=== PATIENT | male | born 1950 | race Caucasian/White ===

== ENCOUNTER 2018-03-06 13:34 | Inpatient (IN) ==
[2018-03-06] MEDS ORDERED: TYLENOL PO PRN (13:37)
[2018-03-06] MEDS ORDERED: SALINE LOCK IV FLUID XX ONE (13:42)
[2018-03-06] MEDS ORDERED: VANCOMYCIN IV PER PHARMACY MISC SCH (13:45)
--- NOTE | 2018-03-06 15:01 | HISTORY AND PHYSICAL ---
CHIEF COMPLAINT: Scrotal swelling. HISTORY OF PRESENT ILLNESS: The patient is a 67-year-old, white male, followed in my medical practice. He has had about a week history of scrotal swelling, much worse over the past 24 hours. He has been unable to lie flat in the bed for just less than a year after he suffered a fall about a year ago. Since then, he has had thoracic and lumbar back pain and has to sleep in a recliner. He has had some chronic swelling in his legs with some cellulitis tendencies and venous insufficiency and has been treated by Dr. Alejandro De La Rosa with pump devices on his legs and also has been taking Lasix 40 mg q.a.m. for that, was increased to 80 mg recently. The patient has had worsened pain in the scrotal area since yesterday. MEDICATIONS: Prior to admission are Nexium 40 mg p.o. daily, Norvasc 2.5 mg p.o. daily, Zebeta 5 mg p.o. daily, Synthroid 112 mcg p.o. daily, allopurinol 300 mg p.o. daily, metformin 850 mg p.o. b.i.d., Lyrica [address] p.o. t.i.d. per Dr. Holder, who had been seeing him for rheumatology care until recently. Coumadin due to recurrent PTE. Lasix 80 mg p.o. q.a.m., trazodone 100 mg p.o. at bedtime, lisinopril 40 mg p.o. daily, B12 1000 mcg p.o. daily. ALLERGIES: NKDA. PAST MEDICAL HISTORY: 1. Chronic low back pain. 2. Morbid obesity. 3. 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 4. Type 2 DM diagnosed March 2010. 5. Chronic venous insufficiency lower extremities, longstanding. 6. Hypothyroidism. 7. Hypertension. 8. Gout. PAST SURGICAL HISTORY: 1. L5 disk removal in 1986. 2. Lumbar fusion in 1991. IMMUNIZATIONS: The patient has taken Zostavax in the past, Prevnar 13 given May 2015. Influenza vaccination given November 2017. FAMILY HISTORY: Notable for valve replacement in his mother, coronary artery disease in his mother. Hypertension in his mother, stomach cancer in his grandmother, [place] in his grandfather. No strokes or diabetes in the family. SOCIAL HISTORY: The patient lives in [place]. He is . He has 2 sons. He has been long- term disabled. Been a smoker about 3 to 4 cigarettes per day for about 50 years. No alcohol use. REVIEW OF SYSTEMS: Negative except as above. Echo done 2 years ago with normal EF of 60%. PHYSICAL EXAMINATION: VITAL SIGNS: Height 5 feet 10 inches. Weight greater than 300 pounds. Blood pressure 90/52, heart rate 73, O2 saturation on room air 94%. GENERAL: Morbidly obese, white male, in distress with scrotal pain. SKIN: There is moderate redness and pronounced scaliness from about 3[address] the knees into the upper feet area bilaterally with 2 to 3+ lower extremity edema. No weeping. No skin breakdown over the legs or feet. There is prominent macerations and redness to the scrotum with pronounced swelling about the scrotum and especially at the perineal aspect of the scrotum. There is a marked enlargement there, cannot rule out fluctuance. Again, the area is very red. Some maceration. Minimal bleeding noted. HEENT: LAITH, EOMI. Sclerae clear. Oropharynx, no redness. NECK: Very large. No JVD or bruits appreciated. CV: Regular rate and rhythm. No distinct murmur. LUNGS: Clear to auscultation. BACK: No pinpoint tenderness to palpation. ABDOMEN: Very protuberant. Active bowel sounds. Unable to appreciate ascites versus morbidly obese. : As above. EXTREMITIES: Two to 3+ lower extremity edema with chronic venous stasis changes and venous insufficiency lower extremities, prominent. NEUROLOGIC: Cranial nerves are intact. He moves all extremities well. No focal deficits. LABS: Reviewed recent lab testing done in the ER from the ER visit on 03/02/2018 and A1c done in the office 2 days ago 5.8. INR 2.3. ASSESSMENT: 1. Scrotal cellulitis, rule out necrotizing fasciitis. 2. Chronic venous insufficiency lower extremities with lower extremity cellulitis and venous stasis dermatitis. 3. Morbid obesity. 4. Type 2 diabetes mellitus. 5. Hypertension. 6. Hypothyroidism. 7. History of bilateral pulmonary thromboembolism on chronic Coumadin therapy and followed in the past by Dr. Soto. 8. Gout, stable on allopurinol. PLAN: Will admit the patient to the hospital. Check blood cultures x2. Lactase level, CBC with differential, CMP, A1c, PT, PTT. Will elevate the scrotum and start meropenem and vancomycin. I have spoken with Dr. Neumann of urology who will see the patient in consultation. cc: Duy Jamil MD
[2018-03-06 16:18] LABS: BASO# 0.05 X1000 (0.0-0.2); BASO% 0.3 % (0.0-0.8); EOS# 0.25 X1000 (0.0-0.7); EOS% 1.5 % (0.0-10.0); HEMATOCRIT 36.7 % (42.0-52.0); HEMOGLOBIN 11.8 g/dL (14.0-18.0); IMM GRAN# 0.12 X1000 (0.0-0.04); IMM GRAN% 0.7 % (0.0-0.5); LYMPH# 0.97 X1000 (1.2-3.4); LYMPH% 5.8 % (20.5-51.1); MCH 31.6 PG (27-31); MCHC 32.2 g/dL (33-37); MCV 98.4 FL (81-99); MONO# 1.22 X1000 (0.11-0.59); MONO% 7.2 % (1.7-9.3); MPV 9.5 FL (7.4-10.4); NEUT# 14.22 X1000 (1.4-6.5); NEUT% 84.5 % (42.2-75.2); PLT 247 X1000 (130-400); RBC 3.73 XMIL (4.7-6.1); RDW 14.1 % (11.5-14.5); WBC 16.83 X1000 (4.8-10.8)
[2018-03-06 16:29] LABS: INR 2.21; PROTIME 26.1 Seconds (11.0-16.0)
[2018-03-06 16:30] LABS: PTT 66.3 Seconds (22.3-41.8)
[2018-03-06 16:32] LABS: HEMOGLOBIN A1C 5.6 % (4.8-6.0)
[2018-03-06] MEDS: HUMULIN R SUBQ SCH ×2 (16:37→21:41)
[2018-03-06 16:39] LABS: ALB/GLOB RATIO 0.8; ALBUMIN 3.3 g/dL (3.5-5.0); CALCIUM 8.9 mg/dL (8.8-10.2); CREATININE 2.4 mg/dL (0.7-1.2); POTASSIUM 4.2 mmol/L (3.5-5.1); TOTAL BILIRUBIN 0.98 mg/dL (0.20-1.00); TOTAL PROTEIN 7.2 g/dL (6.3-8.3)
[2018-03-06] MEDS ORDERED: VANCOMYCIN 2.5 GM in NS 500 ML IV ONE (18:00)
[2018-03-06] MEDS: MERREM 1 GM in NS 50 ML IV SCH (18:33)
[2018-03-06] MEDS: DILAUDID IV PRN (20:47)
--- NOTE | 2018-03-07 01:31 | CONSULTATION ---
DATE OF CONSULTATION: 03/06/2018 ATTENDING PHYSICIAN: Duy Jamil MD. REFERRING PHYSICIAN: Duy Jamil MD. HISTORY OF PRESENT ILLNESS: This 67-year-old male has a week-long history of increasing swelling in the scrotum. He was seen in the emergency room on 02 March and was evaluated as having anasarca and swelling of the scrotum. The patient states he got worse and was seen by his family physician and was admitted with a probable scrotal abscess. The patient states he has had problems with swelling and has some difficulty with his foreskin. He states he is voiding without difficulty. PAST MEDICAL HISTORY: Diabetes, hypertension, hypothyroidism, gastroesophageal reflux disease, gout, recurrent DVT and pulmonary thromboembolism, trazodone for sleep, lower back pain, morbid obesity, chronic venous problems of his lower extremities. CURRENT MEDICATIONS: Documented on the chart. He was on Coumadin; his last dose was yesterday. PAST SURGICAL HISTORY: Multiple lower extremity procedures for venous ulcers, L5 disk removal, lumbar fusion. SOCIAL HISTORY: Cigarette use for over 50 years but now at 1/2 pack a day. ETOH use is negative. ALLERGIES: No known drug allergies. REVIEW OF SYSTEMS: He cannot walk very far; he gets short of breath. He tries to keep his diabetes under control. He has had no strokes or seizures. He has occasional bowel problems. PHYSICAL EXAMINATION: General: A markedly obese, age apparent, normally developed white male oriented in all ways and cooperative. HEENT: Normal for age. Lungs: Normal breath sounds but very distant. Cardiovascular: Regular rate and rhythm. Abdomen: Markedly obese, soft. No hepatosplenomegaly or masses, but even if there was, it would probably not be palpable. Genitourinary: Marked edema of the scrotum and foreskin. There is significant increased erythema, and it is very dusky at the scrotal-perineal junction and probably some fluctuance, but it is very tender with palpation. Testes are not palpable. He has a very large pannus. Extremities: +2 lower extremity edema with venous stasis changes. Neurologic: No focal deficits. LABORATORY EVALUATION: He has a white count of 16.8, a hemoglobin of 11.8, a hematocrit of 36.7, and platelets of 247,000. His serum electrolytes are normal. BUN 34, creatinine 2.4. Serum glucose is 143. IMPRESSION: 1. Scrotal abscess. 2. Phimosis. 3. Morbidly obese. 4. Marked scrotal and foreskin edema. PLAN: I attempted to place a Hogan catheter for fluid management for over 45 minutes without success. He has essentially a hidden penis, and the marked edema would not allow exposure of the glans penis and meatus. Incision and drainage of the scrotal abscess under anesthesia and will place a Hogan catheter at that time. May need a dorsal slit circumcision. The planned procedure, benefits versus risks, and possible complications, including, but not limited to, bleeding, infection, not being able to place a catheter, need for further wound care and surgery were discussed. Discussed that him being on Coumadin and being anticoagulated could cause increased bleeding, leading to a blood transfusion. They seemed to understand and desire to proceed. cc: MD Duy Valdez MD
[2018-03-07] MEDS: MERREM 1 GM in NS 50 ML IV SCH ×3 (01:53→17:24)
[2018-03-07] MEDS: DILAUDID IV PRN ×2 (01:53→09:56)
[2018-03-07 06:30] LABS: BASO# 0.03 X1000 (0.0-0.2); BASO% 0.2 % (0.0-0.8); HEMATOCRIT 34.7 % (42.0-52.0); HEMOGLOBIN 11.2 g/dL (14.0-18.0); IMM GRAN# 0.14 X1000 (0.0-0.04); IMM GRAN% 0.9 % (0.0-0.5); LYMPH# 1.08 X1000 (1.2-3.4); LYMPH% 7.2 % (20.5-51.1); MCH 31.8 PG (27-31); MCHC 32.3 g/dL (33-37); MCV 98.6 FL (81-99); MONO# 1.32 X1000 (0.11-0.59); MONO% 8.9 % (1.7-9.3); MPV 9.4 FL (7.4-10.4); NEUT# 12.04 X1000 (1.4-6.5); NEUT% 80.8 % (42.2-75.2); PLT 215 X1000 (130-400); RBC 3.52 XMIL (4.7-6.1); RDW 13.9 % (11.5-14.5); WBC 14.91 X1000 (4.8-10.8)
[2018-03-07 06:32] LABS: INR 2.33; PROTIME 27.3 Seconds (11.0-16.0)
[2018-03-07 06:51] LABS: CALCIUM 8.2 mg/dL (8.8-10.2); CREATININE 1.8 mg/dL (0.7-1.2); POTASSIUM 4.1 mmol/L (3.5-5.1)
[2018-03-07] MEDS: SYNTHROID PO SCH (07:04)
[2018-03-07] MEDS: NEXIUM PO SCH (07:04)
[2018-03-07] MEDS: HUMULIN R SUBQ SCH ×4 (07:04→21:42)
[2018-03-07] MEDS ORDERED: VITAMIN K 10 MG in NS 50 ML IV ONE (08:40)
--- NOTE | 2018-03-07 09:06 | PROGRESS NOTE ---
DATE: 03/07/2018 SUBJECTIVE: Patient resting fairly comfortably. He has had some onset of bleeding at the posterior scrotal area and some foul-smelling discharge. He is scheduled for I D of the scrotal abscess later today per Dr. Neumann. INR is 2.3. With the bleeding we are going to have to give him some vitamin K to make this more amenable to treatment with his upcoming surgery and with the ongoing bleeding. OBJECTIVE: T-max 99.4 degrees, pulse 78, respirations 18, blood pressure 118/53. O2 saturation on room air 93 to 98 percent.CV: RRR without distinct murmur. Lungs: CTA. Abdomen: Morbid obesity. Nontender. Moribund. Extremities: 2 to 3+ lower extremity edema with some scaliness to the lower legs and ankle areas circumferentially and also moderate redness in the area below the knees to the ankles. Prominent feet swelling as well. Neurologic: Patient arousable, alert, answers questions appropriately. Does seem slightly sedated on Dilaudid. Sodium 138, potassium 4.1, chloride 98, CO2 27, BUN 34, creatinine 1.8. A1c 5.6, blood sugars in the mid 100s. Lactate yesterday 1.9. White count down from 16.8, 14.9, hemoglobin 11.2, platelets 215,000. INR 2.33. ASSESSMENT: 1. Scrotal abscess with cellulitis. 2. Bleeding from the scrotal area. 3. Lower extremity cellulitis and edema. 4. Morbid obesity. 5. Anasarca. 6. Type 2 diabetes mellitus. 7. History of bilateral PEs, May 2008, severe on chronic Coumadin therapy. 8. Hypothyroidism. 9. Chronic venous insufficiency lower extremities. 10. Hypertension. 11. Gout. PLAN: At this time, we will give him vitamin K 10 mg IV x1 dose and Dr. Neumann plans on I and D of the scrotal abscess later today. Continue meropenem and vancomycin IV and monitor his labs closely. We will monitor his INR and will apply SCD hose. Check echocardiogram. Continue Lasix 80 mg daily and add low-dose Aldactone. Continue Nexium, Synthroid, and we are holding his BP medications at this time as he came in somewhat borderline low blood cultures x2 are in progress indication on Benson burgos trina was delivered in the. cc: Duy Jamil MD
[2018-03-07] MEDS: CETAPHIL MOISTURIZING LOT TOP SCH ×2 (10:39→20:30)
[2018-03-07] MEDS ORDERED: XYLOCAINE-MPF 2% ONE (10:46)
[2018-03-07] MEDS ORDERED: DIPRIVAN 1% ONE (10:46)
[2018-03-07] MEDS ORDERED: ROBINUL ONE (10:46)
[2018-03-07] MEDS ORDERED: NEOSPORIN OINTMENT PACKET ONE (12:14)
[2018-03-07 12:54] LABS: URINE SOURCE CATH
[2018-03-07 12:59] LABS: BILIRUBIN URINE NEGATIVE (NEGATIVE); BLOOD URINE TRACE (NEGATIVE); COLOR YELLOW; GLUCOSE URINE NEGATIVE (NEGATIVE); KETONE URINE TRACE mg/dL (NEGATIVE); LEUKOCYTES URINE NEGATIVE (NEGATIVE); NITRITE URINE NEGATIVE (NEGATIVE); PH URINE 5.5; PROTEIN URINE 30 mg/dL (NEGATIVE); SP GRAVITY URINE 1.017; TURBIDITY URINE HAZY (CLEAR); UROBILINOGEN URINE 4 mg/dL (NORMAL)
[2018-03-07 13:05] LABS: UR EPITHELIAL CELLS <10 /HPF (<10); URINE BACTERIA NEGATIVE /HPF; URINE RBC <10 /HPF (<10); URINE WBC <10 /HPF (<10)
[2018-03-07 13:16] LABS: URINE YEAST NONE SEEN
[2018-03-07] MEDS: LYRICA PO SCH ×3 (14:10→17:23)
[2018-03-07] MEDS: LASIX PO SCH (14:11)
[2018-03-07] MEDS: ZYLOPRIM PO SCH (14:11)
[2018-03-07] MEDS: DESYREL PO SCH (14:12)
[2018-03-07] MEDS: PATIENT'S OWN MED SL SCH (14:13)
--- NOTE | 2018-03-07 20:10 | OPERATIVE NOTE ---
PROCEDURE DATE: 03/07/2018 SURGEON: Mike Neumann MD. POSTOP DIAGNOSIS: Scrotal abscess with marked penile and scrotal edema. POSTOPERATIVE DIAGNOSIS: Perineal and scrotal abscess with marked penile and scrotal edema. PROCEDURE PERFORMED: Incision and drainage of the large perineal and scrotal abscess and difficult Hogan catheterization. FINDINGS: There was marked penile and scrotal edema. There was a fluctuant area that started on the right side of the anal verge and went across the perineum up onto the scrotum to about fpc up the left scrotum. After this was opened up a large amount of pus was removed. Aerobic and anaerobic cultures were obtained. The patient had an essentially hidden penis and the glans penis and meatus could not be visualized. INDICATION FOR PROCEDURE: This 67-year-old male is morbidly obese and developed scrotal area and left hip area pain. He was seen by his family physician and was admitted with a scrotal abscess. Attempts were made to place a Hogan catheter on the floor without success. DESCRIPTION OF PROCEDURE: After informed consent was obtained from the patient and him receiving IV antibiotics, he was taken to the main OR, placed in the supine position. General anesthesia via laryngeal mask was achieved. He was then placed in candy canes in the lithotomy position. The table was placed in Trendelenburg. He was prepped and draped sterilely for lower abdominal, penile, and perineal surgery. A scalpel blade was used to make an incision through the left side of the scrotum down the perineum to the right side of the anal area. A large amount of purulent material drained out. Cultures both aerobic and anaerobic were obtained. After the purulence was removed, normal saline was used to irrigate the area. The wound was packed with 1 inch iodoform gauze, an entire bottle was used. This was reinforced with ABD pads. The ABD pad was held. The foreskin was squeezed trying to push edema fluid out of it without success. DeBakeys were used to pull the inner prepuce out enough to where the glans penis could be seen. A 16-Swazi Hogan catheter was then able to be passed through the meatus, urethra, prostate and into the bladder. Cloudy urine returned but 10 mL of sterile water were placed in the balloon. The Hogan was placed to gravity drain. After this difficult Hogan catheterization was performed, the ABD pads were taped to his inner thighs and mesh briefs were placed. He tolerated the procedure well. Estimated blood loss was 25 mL. He was taken to the recovery room in good condition. cc: MD Duy Valdez MD
[2018-03-08] MEDS: MERREM 1 GM in NS 50 ML IV SCH ×3 (01:40→17:45)
[2018-03-08] MEDS: PERIDEX MT SCH ×3 (02:16→21:22)
[2018-03-08] MEDS: DILAUDID IV PRN ×4 (05:01→21:18)
[2018-03-08] MEDS ORDERED: VANCOMYCIN 2 GM in NS 500 ML IV SCH (06:00)
[2018-03-08] MEDS: NEXIUM PO SCH (06:27)
[2018-03-08] MEDS: SYNTHROID PO SCH (06:27)
[2018-03-08] MEDS: HUMULIN R SUBQ SCH ×4 (06:44→21:26)
[2018-03-08 06:46] LABS: BASO# 0.02 X1000 (0.0-0.2); BASO% 0.2 % (0.0-0.8); EOS% 2.6 % (0.0-10.0); HEMATOCRIT 33.2 % (42.0-52.0); HEMOGLOBIN 10.6 g/dL (14.0-18.0); IMM GRAN# 0.24 X1000 (0.0-0.04); IMM GRAN% 2.1 % (0.0-0.5); LYMPH# 1.02 X1000 (1.2-3.4); LYMPH% 8.7 % (20.5-51.1); MCH 31.5 PG (27-31); MCHC 31.9 g/dL (33-37); MCV 98.5 FL (81-99); MONO# 0.84 X1000 (0.11-0.59); MONO% 7.2 % (1.7-9.3); MPV 9.1 FL (7.4-10.4); NEUT# 9.26 X1000 (1.4-6.5); NEUT% 79.2 % (42.2-75.2); PLT 203 X1000 (130-400); RBC 3.37 XMIL (4.7-6.1); RDW 13.7 % (11.5-14.5); WBC 11.68 X1000 (4.8-10.8)
[2018-03-08 07:08] LABS: CALCIUM 8.2 mg/dL (8.8-10.2); CREATININE 1.4 mg/dL (0.7-1.2)
[2018-03-08 07:11] LABS: INR 1.3; PROTIME 17.2 Seconds (11.0-16.0)
[2018-03-08] MEDS ORDERED: DAKIN'S 0.25% SOLN TOP ONE (09:22)
[2018-03-08] MEDS: ZYLOPRIM PO SCH (10:59)
[2018-03-08] MEDS: PATIENT'S OWN MED SL SCH (11:00)
[2018-03-08] MEDS: LASIX PO SCH (11:00)
[2018-03-08] MEDS: DESYREL PO SCH (11:00)
[2018-03-08] MEDS: CETAPHIL MOISTURIZING LOT TOP SCH (11:01)
[2018-03-08] MEDS: LYRICA PO SCH ×3 (11:01→18:49)
--- NOTE | 2018-03-08 14:45 | PROGRESS NOTE ---
DATE: 03/08/2018 SUBJECTIVE: Mr. Asencio, a 67-year-old white gentleman, has normal signs. OBJECTIVE: Abscess cultures have been negative. Blood sugar was 105. He has a history of pulmonary embolism. His INR was 1.3 today. He had some episodes of bleeding from the scrotal abscess. He is recovering from the surgery for the scrotal abscess and marked penile and scrotal edema. He is on IV meropenem and IV vancomycin. We will continue the current management on him. -9 cc: MD Duy Causey MD
--- NOTE | 2018-03-08 19:45 | ECHO REPORT ---
ORDER DATE: 03/07/2018 INDICATION: Edema, obesity, diabetes, hypertension. FINDINGS: 1. Right atrium appears mildly enlarged at 4.6 cm. 2. Mild tricuspid regurgitation. RV systolic pressure of 44. 3. Normal RV systolic function with a likely enlarged right ventricle. 4. Mild pulmonic insufficiency. 5. Normal left atrial size with a very difficult visualization of the left atrium. 6. No mitral prolapse. Mild mitral regurgitation. 7. Normal LV size, end-diastolic dimension of 5 cm. Normal wall thicknesses with a posterior and interventricular septal thickness of 1 cm each. Normal LV systolic function. Estimated EF of 65 to 70 percent with normal wall motion. 8. Aortic valve opens well. There is no evidence of stenosis or insufficiency. 9. Aorta appears somewhat enlarged at the root with a dimension of 4 cm but this was a somewhat difficult study. 10. No pericardial effusion seen. cc: MD Duy Willis MD
[2018-03-08] MEDS: ZOFRAN IV PRN (21:22)
[2018-03-09] MEDS: SYNTHROID PO SCH ×2 (05:15→08:38)
[2018-03-09] MEDS: MERREM 1 GM in NS 50 ML IV SCH ×3 (05:16→17:17)
[2018-03-09] MEDS: DILAUDID IV PRN ×5 (05:55→23:07)
[2018-03-09] MEDS: ZOFRAN IV PRN ×2 (05:56→23:08)
[2018-03-09] MEDS: NEXIUM PO SCH (08:38)
[2018-03-09] MEDS: HUMULIN R SUBQ SCH ×3 (08:38→17:17)
[2018-03-09] MEDS: CETAPHIL MOISTURIZING LOT TOP SCH ×2 (09:40→10:34)
[2018-03-09] MEDS: LYRICA PO SCH ×3 (10:30→17:17)
[2018-03-09] MEDS: ZYLOPRIM PO SCH (10:33)
[2018-03-09] MEDS: LASIX PO SCH (10:33)
[2018-03-09] MEDS: PERIDEX MT SCH ×2 (10:33→23:05)
[2018-03-09] MEDS: DESYREL PO SCH (10:33)
[2018-03-09] MEDS: PATIENT'S OWN MED SL SCH (10:34)
[2018-03-09] MEDS ORDERED: LOVENOX SUBQ ONE (11:22)
[2018-03-09] MEDS: VANCOMYCIN 2 GM in NS 500 ML IV SCH (13:37)
[2018-03-10] MEDS: MERREM 1 GM in NS 50 ML IV SCH ×3 (02:12→16:55)
--- NOTE | 2018-03-10 04:00 | PROGRESS NOTE ---
DATE: 03/09/2018 SUBJECTIVE: Mr. Tong is recovering from surgery for scrotal abscess. He is going to have another look tomorrow at around 11 o'clock. However, we will give him one injection of Lovenox 4000 units today. Overall condition is stable. We will continue with the current management. OBJECTIVE: General: He is alert and oriented today. Vital signs: Are stable. Blood pressure is stable. Lungs: Clear. Cardiac: Heart sounds are normal. DIAGNOSTIC DATA: He had an echocardiogram done yesterday which revealed mild right atrial enlargement and mild tricuspid regurgitation. His EF was 65 to 70 percent. There was no evidence of pericardial effusion. -0 cc: MD Duy Causey MD
[2018-03-10] MEDS: DILAUDID IV PRN ×4 (05:19→18:57)
[2018-03-10] MEDS: CETAPHIL MOISTURIZING LOT TOP SCH ×2 (05:23→13:09)
[2018-03-10] MEDS: HUMULIN R SUBQ SCH ×5 (06:38→23:20)
[2018-03-10] MEDS: NEXIUM PO SCH (08:15)
[2018-03-10] MEDS: SYNTHROID PO SCH (08:15)
[2018-03-10] MEDS: LYRICA PO SCH ×3 (09:29→16:54)
--- NOTE | 2018-03-10 09:36 | PROGRESS NOTE ---
DATE: 03/10/2018 SUBJECTIVE: The patient complains of some pain in his low back area that has been chronic. He had been seeing Dr. Holder, airline lounge receptionist, before but Dr. Holder is no longer practicing. We had discussed earlier maybe seeing Dr. Lovell, pain specialist, regarding his back and we may arrange that outpatient later on. At any rate, the patient seems to have less swelling in his scrotum and the leg swelling has diminished as well. OBJECTIVE: Vital Signs: Afebrile, pulse 67, respirations 16, blood pressure 150/61, O2 saturation on room air of 96 to 98 percent. CV: RRR without distinct murmur. Lungs: Clear. Abdomen: Morbid obesity. Very protuberant, soft, nontender, nondistended. Integumentary: Perineal area is somewhat bandaged. Extremities: Lower extremity edema has decreased. He has 1+ lower extremity edema bilaterally. There is mild redness and less scaliness with the lotion being applied to the feet and legs. He has chronic toenail onychomycosis with thickened nails that are long. Neurologic: Cranial nerves are intact. He moves all extremities well. He has a tremor in his hand but that seems very inconsistent on exam. His inquires about that. Laboratory Data: White count 2 days ago was 11. Blood sugars ranging in the low 100s. Blood cultures x2 and culture of the wounds are negative. ASSESSMENT: 1. Scrotal abscess with perineal and scrotal cellulitis, improved, status post incision and drainage per Dr. Neumann. 2. Lower extremity cellulitis and edema, improved. 3. Morbid obesity. 4. Anasarca. 5. Type 2 diabetes mellitus. 6. History of bilateral pulmonary thromboembolisms in May 2008, severe, and therefore on chronic Coumadin therapy, now currently on Lovenox for prophylaxis. 7. Hypothyroidism. 8. Chronic venous insufficiency of the lower extremities. 9. Hypertension. 10. Gout. 11. Chronic low back pain. PLAN: I encouraged the patient in weight loss. We reviewed the echocardiogram done Saturday, which was good. He remains on meropenem and vancomycin, and lotion has been applied to his lower extremities which seems to be helping the dry skin. He is on low-dose Aldactone and on the Lasix orally as well as Nexium and Synthroid. BP medications are being held but we may need to resume those soon. The patient is going down per Dr. Neumann again to have an evaluation of the scrotal area to see if there are more areas that need debrided or I and D'ed. We will likely resume his Coumadin late this evening. We will reevaluate and see if he has had further actual debridement done to make sure he does not bleed from that prior to starting the Coumadin back. cc: Duy Jamil MD
[2018-03-10] MEDS ORDERED: XYLOCAINE-MPF 2% ONE (10:39)
[2018-03-10] MEDS ORDERED: DIPRIVAN 1% ONE (10:39)
[2018-03-10] MEDS ORDERED: ULTRAM PO ONE (12:40)
[2018-03-10] MEDS: LASIX PO SCH (13:10)
[2018-03-10] MEDS: ZYLOPRIM PO SCH (13:10)
[2018-03-10] MEDS: PATIENT'S OWN MED SL SCH (13:11)
[2018-03-10] MEDS: DESYREL PO SCH (13:11)
[2018-03-10] MEDS: PERIDEX MT SCH (13:11)
--- NOTE | 2018-03-10 13:23 | OPERATIVE NOTE ---
PROCEDURE DATE: 03/10/2018 SURGEON: Mike Neumann MD. PREOPERATIVE DIAGNOSIS: Status post incision, drainage, and debridement of a perianal perineal and scrotal abscess. POSTOPERATIVE DIAGNOSIS: Status post incision, drainage, and debridement of a perianal perineal and scrotal abscess. PROCEDURE PERFORMED: Second look and debridement of necrotic skin edges of the wound. ANESTHESIA: General via laryngeal mask. FINDINGS: The wound bed is granulating well with some exudative material. This was easily removed. The skin edges mainly on the perineal and distal scrotal wound were necrotic and easily removed. INDICATION FOR PROCEDURE: This 67-year-old male has a history of a perianal, perineal and scrotal abscess. He is 3 days status post incision, drainage and debridement of the wound. He has been undergoing 1/4 strength Dakin's solution wet-to-dry dressing changes twice a day. DESCRIPTION OF PROCEDURE: After informed consent was obtained from the patient, him receiving his routine IV antibiotics, he was taken to the main OR, placed in supine position. General anesthesia via laryngeal mask was achieved. He was then placed in the exaggerated lithotomy position and prepped and draped in the usual sterile fashion for penile scrotal and perineal surgery. The old packing was removed. The wound was scrubbed out with Vashe solution. The necrotic wound edges were excised using Metzenbaum scissors. The tissue was discarded hemostasis was achieve with the electrocautery. The wound was redressed with soaked Vashe solution, dry dressings as well as ABDs were placed. He tolerated this procedure well. ESTIMATED BLOOD LOSS: Was 25 mL. He was taken to the recovery room in good condition. cc: MD Duy Valdez MD
[2018-03-10] MEDS: VANCOMYCIN 2 GM in NS 500 ML IV SCH (18:57)
[2018-03-11] MEDS: MERREM 1 GM in NS 50 ML IV SCH ×3 (01:30→16:44)
[2018-03-11] MEDS: PERIDEX MT SCH ×3 (02:28→21:18)
[2018-03-11] MEDS: SYNTHROID PO SCH ×2 (05:34→06:28)
[2018-03-11] MEDS: NEXIUM PO SCH ×2 (05:34→06:28)
[2018-03-11] MEDS: CETAPHIL MOISTURIZING LOT TOP SCH ×3 (05:37→21:19)
[2018-03-11] MEDS: HUMULIN R SUBQ SCH ×4 (06:27→21:18)
--- NOTE | 2018-03-11 08:28 | PROGRESS NOTE ---
DATE: 03/11/2018 SUBJECTIVE: The patient had debridement of necrotic tissue and exudative material at the wound site of the perineum and scrotal area yesterday. There was some bloody oozing. This was not severe and patient tolerated the procedure well and I spoke with Dr. Neumann and he says the wound is overall improving. The patient is stable otherwise. He has had some cough. OBJECTIVE: Vitals: Afebrile, pulse 77, respirations 20, blood pressure 148/76. O2 saturation room air 91 to 93 percent. CARDIOVASCULAR: Regular rhythm and rate. Lungs: Computed tomography angiography, distant breath sounds. Abdomen: Very protuberant. Morbid obesity. Active bowel sounds. Extremities: Trace lower extremity edema with much improvement overall in the edema in his feet and lower legs. There is some redness circumferentially around the lower legs consistent with venous stasis dermatitis, but the scaliness is improved with the Cetaphil lotion. Neurologic: Cranial nerves are intact. No focal deficits. Cultures of the wound remain negative, as do blood cultures. ASSESSMENT: 1. Scrotal abscess perineum and scrotal area, status post incision and drainage and debridement x2. 2. Cellulitis lower extremities with edema, improved. 3. Morbid obesity. 4. Venous stasis dermatitis with chronic venous insufficiency lower extremities. 5. Type 2 diabetes mellitus. 6. History of remote bilateral pulmonary thromboembolisms, on chronic Coumadin therapy. 7. Hypothyroidism. 8. Hypertension. 9. Gout. 10. Chronic low back pain. PLAN: We will ask Physical Therapy to see the patient and start to work with him on ambulation. Continue low-dose Aldactone and Lasix and will resume his Coumadin and give him subcutaneous Lovenox prophylactically for DVT. We will start incentive spirometer and albuterol nebulizer treatments. Continue SSI and frequent Accu-Cheks, holding his metformin currently. We will get home health care arranged and instructions are being given per Dr. Neumann to the patient's regarding packing of the wound. Continue IV antibiotics and hopefully discharge late in the week if he continues on present course. cc: Duy Jamil MD
[2018-03-11] MEDS: LASIX PO SCH (09:32)
[2018-03-11] MEDS: DESYREL PO SCH (09:32)
[2018-03-11] MEDS: ZEBETA PO SCH (09:32)
[2018-03-11] MEDS: LYRICA PO SCH ×3 (09:33→16:44)
[2018-03-11] MEDS: PATIENT'S OWN MED SL SCH (09:33)
[2018-03-11] MEDS: COZAAR PO SCH (09:33)
[2018-03-11] MEDS: ZYLOPRIM PO SCH (09:33)
[2018-03-11] MEDS: DILAUDID IV PRN ×2 (09:35→13:37)
[2018-03-11] MEDS: ALBUTEROL NEB INH SCH ×3 (15:46→21:23)
[2018-03-11] MEDS: COUMADIN PO SCH (21:18)
[2018-03-12] MEDS: MERREM 1 GM in NS 50 ML IV SCH ×3 (00:11→16:43)
[2018-03-12] MEDS: VANCOMYCIN 2 GM in NS 500 ML IV SCH (01:16)
[2018-03-12] MEDS: ALBUTEROL NEB INH SCH ×4 (02:30→21:25)
[2018-03-12] MEDS: SYNTHROID PO SCH (06:12)
[2018-03-12] MEDS: HUMULIN R SUBQ SCH ×4 (06:12→21:53)
[2018-03-12] MEDS: NEXIUM PO SCH (06:12)
[2018-03-12 06:55] LABS: BASO# 0.04 X1000 (0.0-0.2); BASO% 0.5 % (0.0-0.8); EOS# 0.44 X1000 (0.0-0.7); EOS% 5.6 % (0.0-10.0); HEMATOCRIT 36.8 % (42.0-52.0); HEMOGLOBIN 11.8 g/dL (14.0-18.0); IMM GRAN# 0.45 X1000 (0.0-0.04); IMM GRAN% 5.7 % (0.0-0.5); LYMPH# 1.41 X1000 (1.2-3.4); LYMPH% 17.9 % (20.5-51.1); MCH 31.7 PG (27-31); MCHC 32.1 g/dL (33-37); MCV 98.9 FL (81-99); MONO# 0.64 X1000 (0.11-0.59); MONO% 8.1 % (1.7-9.3); NEUT# 4.89 X1000 (1.4-6.5); NEUT% 62.2 % (42.2-75.2); PLT 217 X1000 (130-400); RBC 3.72 XMIL (4.7-6.1); RDW 13.8 % (11.5-14.5); WBC 7.87 X1000 (4.8-10.8)
[2018-03-12 07:09] LABS: CALCIUM 8.6 mg/dL (8.8-10.2); CREATININE 1.2 mg/dL (0.7-1.2)
[2018-03-12 07:21] LABS: INR 1.11; PROTIME 15.2 Seconds (11.0-16.0)
[2018-03-12] MEDS: DILAUDID IV PRN ×2 (08:01→13:51)
[2018-03-12 08:24] LABS: EOS 10 % (1-10); LYMPHS 22 % (21-51); MONO 16 % (1-9); SEGS 48 % (42-75)
[2018-03-12] MEDS: ZEBETA PO SCH (09:02)
[2018-03-12] MEDS: LOVENOX SUBQ SCH (09:03)
[2018-03-12] MEDS: PERIDEX MT SCH ×2 (09:03→21:53)
[2018-03-12] MEDS: COZAAR PO SCH (09:03)
[2018-03-12] MEDS: LYRICA PO SCH ×3 (09:03→16:42)
[2018-03-12] MEDS: ZYLOPRIM PO SCH (09:03)
[2018-03-12] MEDS: LASIX PO SCH (09:03)
[2018-03-12] MEDS: DESYREL PO SCH (09:03)
[2018-03-12] MEDS: CETAPHIL MOISTURIZING LOT TOP SCH ×2 (09:04→21:54)
[2018-03-12] MEDS: PATIENT'S OWN MED SL SCH (09:28)
[2018-03-12] MEDS ORDERED: MILK OF MAGNESIA PO PRN (12:59)
--- NOTE | 2018-03-12 13:35 | PROGRESS NOTE ---
DATE: 03/12/2018 SUBJECTIVE: Patient complains of spasm in his back that flares up quite a bit. He says it is making it difficult for him to lie in bed. He was able to ambulate quite a few feet with physical therapy earlier today and do some toe touching exercises. The patient had the I and D again yesterday of the scrotum and perineal area. He has not had a bowel movement in several days, and he is concerned about that. says his legs looked black earlier and that has resolved now. He does have chronic venous insufficiency and some red discoloration to the legs, lower aspect long-standing. OBJECTIVE: Vital Signs: Afebrile. Blood pressure looks better in the 120 systolic currently, but that is concerning the patient. CV: RRR without murmur. Lungs: CTA. Morbid obesity and prominent abdominal girth noted. Active bowel sounds. No particular point tenderness. Extremities: Trace lower extremity edema. Overall edema is markedly improved since he came in. There are some varicose veins prominent over the lower legs. There is some diffuse redness which is moderate in intensity. There is no black discoloration. No necrosis identified. Feet have come down in size as well with less edema there. Does have some dystrophic nails that are prominent. Neurologic: Cranial nerves are intact. Nonfocal. LAB DATA: Shows white count down to normal at 7.8, hemoglobin 11.8, platelets 217. INR 1.11. Sodium 138, potassium 4.0, chloride 92, CO2 34. BUN 22, creatinine 1.2. Blood sugars in the low 100s. Calcium 8.6. Blood cultures and wound culture remain negative. ASSESSMENT: 1. Scrotal and perineal abscess improved after incision and drainage of the area times two. 2. Cellulitis lower extremities with chronic venous insufficiency and chronic stasis dermatitis, lower extremities, improved by my exam markedly. 3. Morbid obesity. 4. Chronic back pain. 5. Type 2 diabetes mellitus. 6. Remote history of bilateral pulmonary thromboembolism on chronic Coumadin therapy prior to this hospitalization. 7. Hypothyroidism. 8. Hypertension. 9. Gout. PLAN: We will arrange for the patient to have a hospital bed so he can avoid lying in his recliner which seems to increase the scrotal edema situation. We will continue to work with physical therapy regarding ambulation and activity level. We will add Robaxin for spasms of the low back. As he has the constipation, we will give him some daily MiraLAX and add milk of magnesia as required, but will not overdo it as we are trying to keep the perineum as clean as we can. Continue incentive spirometry, albuterol nebulizer treatments. We had started him back on some of his antihypertensives yesterday, but opted for low-dose Zebeta. So far creatinine looks good on that. We have not yet started him back on his metformin, but that will be a consideration the next couple of days, and likely tomorrow we will be able to change him over to oral antibiotics from the IV antibiotics. Home healthcare is going to be arranged to help with dressings of the perineum and scrotum at home. His has been educated in that process. He has been started back on his Coumadin last evening; will continue that and resume his home dose of the Coumadin soon. In the meantime, we will give him Lovenox at prophylactic doses so as not to increase any bleeding at the surgical site. cc: Duy Jamil MD
[2018-03-12] MEDS: MIRALAX PO SCH (14:01)
[2018-03-12] MEDS: COUMADIN PO SCH (21:53)
[2018-03-13] MEDS: MERREM 1 GM in NS 50 ML IV SCH ×2 (01:35→08:45)
[2018-03-13] MEDS: ALBUTEROL NEB INH SCH ×4 (03:25→21:12)
[2018-03-13] MEDS: VANCOMYCIN 2 GM in NS 500 ML IV SCH (05:06)
[2018-03-13] MEDS: SYNTHROID PO SCH (06:19)
[2018-03-13] MEDS: HUMULIN R SUBQ SCH ×2 (06:19→11:56)
[2018-03-13] MEDS: NEXIUM PO SCH (06:19)
[2018-03-13] MEDS: ROBAXIN PO PRN (08:11)
[2018-03-13] MEDS: LYRICA PO SCH ×3 (08:11→20:49)
[2018-03-13] MEDS: COZAAR PO SCH (08:11)
[2018-03-13] MEDS: PERIDEX MT SCH ×2 (08:11→20:51)
[2018-03-13] MEDS: ZYLOPRIM PO SCH (08:11)
[2018-03-13] MEDS: ZEBETA PO SCH (08:11)
[2018-03-13] MEDS: MIRALAX PO SCH (08:11)
[2018-03-13] MEDS: LASIX PO SCH (08:11)
[2018-03-13] MEDS: DESYREL PO SCH (08:11)
[2018-03-13] MEDS: CETAPHIL MOISTURIZING LOT TOP SCH ×2 (08:12→20:50)
[2018-03-13] MEDS: PATIENT'S OWN MED SL SCH (08:12)
[2018-03-13] MEDS: LOVENOX SUBQ SCH (08:13)
[2018-03-13] MEDS ORDERED: DULCOLAX PR ONE (12:23)
--- NOTE | 2018-03-13 13:00 | PROGRESS NOTE ---
DATE: 03/13/2018 SUBJECTIVE: Patient is stable. Insurance is not going to cover his hospital bed. Due to a fall, he has had some chronic back pain times many months and it makes hard for him to sleep flat in the bed, so he has been sleeping in a recliner, which really exacerbates his scrotal edema and sets him up for further abscess and cellulitis difficulties. At any rate, the hospital bed is not going to be covered by the insurance and the family cannot afford to rent a hospital bed at this point. We are going to try to get him a bedside commode which should help. He still has not had a bowel movement. We have not been overly aggressive with the laxatives at this point. OBJECTIVE: Vital signs: Afebrile. Pulse 62, respirations 12, blood pressure 121/66, O2 saturation on 2 L is 100%. CV: RRR without murmur. Lungs: Clear. Abdomen: Very protuberant. Active bowel sounds noted. Extremities: Trace ankle edema. Mild redness over the shins, much improved from admission. There are some varicosities of the lower extremities and some discoloration to the feet and mclean areas, which is chronic. Neurologic: Cranial nerves 2 through 12 are intact. Nonfocal. ASSESSMENT: 1. Scrotal and perineal abscess and cellulitis scrotal area, status post incision and drainage x2. 2. Cellulitis lower extremities with chronic venous insufficiency and chronic venous dermatitis lower extremities, improved markedly since admission. 3. Morbid obesity. 4. Chronic back pain. 5. Type 2 diabetes mellitus. 6. Remote history of bilateral pulmonary thromboembolism, on chronic Coumadin therapy, going back now on the Coumadin. 7. Hypothyroidism. 8. Hypertension. 9. Gout. 10. Renal insufficiency, improved. PLAN: As stated, will get him a bedside commode. We will go ahead and give him a Dulcolax suppository here in the hospital and try to get his bowels moving prior to probable discharge tomorrow. Change him over from the meropenem and vancomycin to oral Keflex and doxycycline. We will resume his metformin and monitor his renal function closely on that. Continue Robaxin for some back spasms and Dilaudid as needed for pain. He is on low-dose Zebeta and losartan for blood pressure. We will continue those. cc: Duy Jamil MD
[2018-03-13] MEDS: KEFLEX PO SCH ×2 (14:38→20:49)
[2018-03-13] MEDS: DILAUDID IV PRN (14:41)
[2018-03-13] MEDS ORDERED: GLUCOPHAGE PO SCH (17:00)
[2018-03-13] MEDS: DOXYCYCLINE PO SCH (20:49)
[2018-03-13] MEDS: COUMADIN PO SCH (20:50)
[2018-03-14] MEDS: KEFLEX PO SCH ×4 (03:24→20:29)
[2018-03-14] MEDS: ALBUTEROL NEB INH SCH ×4 (03:46→21:20)
[2018-03-14 07:13] LABS: INR 1.16; PROTIME 15.8 Seconds (11.0-16.0)
[2018-03-14 07:24] LABS: CALCIUM 9.6 mg/dL (8.8-10.2); POTASSIUM 3.8 mmol/L (3.5-5.1)
[2018-03-14] MEDS: SYNTHROID PO SCH (07:34)
[2018-03-14 07:36] LABS: BASO# 0.05 X1000 (0.0-0.2); BASO% 0.5 % (0.0-0.8); EOS# 0.53 X1000 (0.0-0.7); EOS% 5.5 % (0.0-10.0); HEMOGLOBIN 11.4 g/dL (14.0-18.0); IMM GRAN% 4.1 % (0.0-0.5); LYMPH# 1.15 X1000 (1.2-3.4); LYMPH% 11.8 % (20.5-51.1); MCH 31.6 PG (27-31); MCHC 31.7 g/dL (33-37); MCV 99.7 FL (81-99); MONO# 0.77 X1000 (0.11-0.59); MONO% 7.9 % (1.7-9.3); MPV 9.4 FL (7.4-10.4); NEUT# 6.81 X1000 (1.4-6.5); NEUT% 70.2 % (42.2-75.2); PLT 208 X1000 (130-400); RBC 3.61 XMIL (4.7-6.1); RDW 14.2 % (11.5-14.5); WBC 9.71 X1000 (4.8-10.8)
[2018-03-14 07:41] LABS: EOS 8 % (1-10); LYMPHS 2 % (21-51); MONO 20 % (1-9); SEGS 70 % (42-75)
--- NOTE | 2018-03-14 08:02 | PROGRESS NOTE ---
DATE: 03/14/2018 SUBJECTIVE: Patient is stable, no complaints today. Had bowel movement x2 yesterday. Dr. Neumann is going back to close the wound in the perineum, scrotal area this morning. OBJECTIVE: Vital signs: Afebrile. Vital signs stable. CV: RRR. No murmur. Lungs: Clear. Abdomen: Soft, protuberant, active bowel sounds, nontender. Extremities: Trace lower extremity edema. Varicose veins. Mild redness over the shins and the forefoot areas with some sparing of the ankles. Overall marked improvement in redness and swelling in the lower extremities since admission. Neurologic: Nonfocal cranial nerves are intact. LABORATORY DATA: Shows CBC currently pending. INR 1.16. Sodium 140, potassium 3.8, chloride 95, CO2 of 33, BUN 32, creatinine 2.0, glucose 109. Blood sugars in the mid-to-low 100s. Calcium 9.6. ASSESSMENT: 1. Scrotal and perineal abscess and cellulitis status post I and D x2, now going back for surgery today for closure of the wound. 2. Cellulitis, lower extremities, with chronic venous insufficiency and chronic venous stasis dermatitis, lower extremities, improved. 3. Morbid obesity. 4. Chronic back pain. 5. Type 2 diabetes mellitus. 6. Remote bilateral pulmonary thromboembolism, on chronic Coumadin therapy, getting back up to therapeutic gradually now. 7. Hypothyroidism. 8. Hypertension. 9. Gout. 10. Chronic renal insufficiency. 11. Gastroesophageal reflux disease. PLAN: At this time, I am going to adjust his medicines as he is having some renal insufficiency worsening. We will stop the low-dosed losartan and stop his home metformin and we will change him to low-dose Amaryl, get him off of the Nexium and give him Pepcid. PLAN: Likely discharge home later today after the wound closure surgery per Dr. Neumann. He will have Hogan catheter in place at home, and home health care will monitor the patient with wound care there as well. He will be on oral Keflex and doxycycline for a total of 10 more days, and I will follow him up in the office in 4 days for a PT/INR check, and he will resume his home dose of Coumadin at 7 mg nightly. He will be only the Zebeta. We will try to leave off the dose home dose of Norvasc he was on to see if that will help his lower extremity edema, and he will elevate his legs as much as possible. Bedside commode has been arranged, but patient unable to get the hospital bed at this time due to finances. Will repeat BMP at recheck in 4 to 10 days in my office. He will follow up with Dr. Neumann within the next week as well. cc: Duy Jamil MD
[2018-03-14] MEDS: DILAUDID IV PRN ×2 (09:10→18:52)
[2018-03-14] MEDS: CETAPHIL MOISTURIZING LOT TOP SCH ×2 (09:27→20:33)
[2018-03-14] MEDS: LASIX PO SCH (09:28)
[2018-03-14] MEDS: DESYREL PO SCH (09:28)
[2018-03-14] MEDS: DOXYCYCLINE PO SCH ×2 (09:28→20:29)
[2018-03-14] MEDS: LYRICA PO SCH ×3 (09:29→18:36)
[2018-03-14] MEDS: PATIENT'S OWN MED SL SCH (09:29)
[2018-03-14] MEDS: MIRALAX PO SCH (09:29)
[2018-03-14] MEDS: PERIDEX MT SCH ×2 (09:29→20:29)
[2018-03-14] MEDS: LOVENOX SUBQ SCH (09:29)
[2018-03-14] MEDS: ZYLOPRIM PO SCH (09:30)
[2018-03-14] MEDS: ZEBETA PO SCH (09:30)
[2018-03-14] MEDS ORDERED: DIPRIVAN 1% ONE (14:25)
[2018-03-14] MEDS ORDERED: EPHEDRINE ONE (15:47)
[2018-03-14] MEDS ORDERED: ZOFRAN ONE (15:47)
[2018-03-14] MEDS ORDERED: ROBINUL ONE (15:47)
--- NOTE | 2018-03-14 19:34 | OPERATIVE NOTE ---
PROCEDURE DATE: 03/14/2018 SURGEON: Mike Neumann MD. PREOPERATIVE DIAGNOSIS: History of large scrotal, perineal and right perineal abscess status post incision, drainage and debridement with the wound granulating well. POSTOPERATIVE DIAGNOSIS: History of large scrotal, perineal and right perineal abscess status post incision, drainage and debridement with the wound granulating well. PROCEDURE PERFORMED: Secondary closure of the wound. ANESTHESIA: General via laryngeal mask. FINDINGS: Well-granulating large scrotal, perineal and right perianal wound. INDICATION FOR PROCEDURE: This 67-year-old male is about 1 week status post incision, drainage and debridement of a large abscess involving the scrotum, perineum and right perianal area. He is status post 2nd look 4 days ago and repeat debridement. He has been undergoing wet-to-dry dressing changes with Vashe solution for the last 4 days. The wound is ready to be closed. DESCRIPTION OF PROCEDURE: After informed consent was obtained from the patient, him receiving his routine antibiotics, he was taken to the main OR, placed in the supine position. General anesthesia via laryngeal mask was achieved. He was then placed in the exaggerated lithotomy position and the wound was prepped with Betadine solution. He was then draped sterilely and the Betadine thoroughly washed out of the wound. The wound was closed with 1-0 Prolene. Vertical mattress sutures were placed 2 cm apart and then these were reinforced with simple sutures in between. A total of 7 horizontal mattress sutures were placed and 7 simple sutures. He tolerated the procedure well. Estimated blood loss was 5 mL. He was taken to the recovery room in good condition. cc: MD Duy Valdez MD
[2018-03-14] MEDS: COUMADIN PO SCH (20:29)
[2018-03-14] MEDS: ROBAXIN PO PRN (20:29)
[2018-03-15] MEDS: DILAUDID IV PRN ×3 (00:10→10:13)
[2018-03-15] MEDS: KEFLEX PO SCH ×2 (01:34→07:30)
[2018-03-15] MEDS: ALBUTEROL NEB INH SCH ×2 (03:20→08:56)
[2018-03-15] MEDS: SYNTHROID PO SCH (06:23)
[2018-03-15] MEDS ORDERED: ROBAXIN PO PRN (07:15)
[2018-03-15] MEDS: ZYLOPRIM PO SCH ×2 (07:30→09:09)
[2018-03-15] MEDS: MIRALAX PO SCH ×2 (07:30→09:10)
[2018-03-15] MEDS: PERIDEX MT SCH ×2 (07:30→09:09)
[2018-03-15] MEDS: ZEBETA PO SCH ×2 (07:31→09:09)
[2018-03-15] MEDS: LYRICA PO SCH ×2 (07:31→09:10)
[2018-03-15] MEDS: LASIX PO SCH ×2 (07:31→09:10)
[2018-03-15] MEDS: LOVENOX SUBQ SCH ×2 (07:32→09:10)
[2018-03-15] MEDS: CETAPHIL MOISTURIZING LOT TOP SCH (08:53)
[2018-03-15] MEDS: PATIENT'S OWN MED SL SCH (09:09)
[2018-03-15] MEDS: DOXYCYCLINE PO SCH (09:10)
[2018-03-15] MEDS: DESYREL PO SCH (09:10)
[2018-03-15 11:09] VITALS: BP 97/50
--- NOTE | 2018-03-15 11:12 | PROGRESS NOTE ---
DATE: 03/15/2018 SUBJECTIVE: Patient complained of spasms in his back and pain in the perineal area where he had closure of the wound per Dr. Neumann yesterday. He is on Dilaudid for that and has some Robaxin ordered as well p.r.n. for the back spasms. OBJECTIVE: Vital Signs: Afebrile. Pulse 67, respirations 18, blood pressure 130/62, O2 saturation on room air 91% to 93%. CV: RRR. Lungs: Clear to auscultation. Abdomen: Very protuberant. Morbid obesity. Active bowel sounds. Nontender. Extremities: Trace lower extremity edema, redness in the mclean and circumferentially around the legs and at the feet has improved, as has the edema in that area, and daily that seems to be getting better. Neurologic: Cranial nerves are intact. No focal deficits. ASSESSMENT: 1. Scrotal and perineal abscess status post incision and drainage times one and relook with debridement after that. Now, patient has had closure of the wound yesterday. 2. Cellulitis of lower extremities with chronic venous insufficiency and chronic venous stasis dermatitis, improving. 3. Morbid obesity. 4. Chronic back pain. 5. Type 2 diabetes mellitus. 6. Remote bilateral pulmonary thromboembolism on chronic anticoagulation, getting back to therapeutic on his Coumadin now. Also, on low-dose subcutaneous Lovenox for prophylaxis of deep vein thrombosis. 7. Hypothyroidism. 8. Hypertension. 9. Gout. 10. Chronic renal insufficiency. 11. Gastroesophageal reflux disease. PLAN: Continue anticoagulation. Continue PT. The patient is on Keflex and doxycycline now. Once this is okay with Dr. Neumann, we are going to discharge the patient home. Arrangements have been made for home healthcare, and medications have been faxed to his pharmacy. He will follow up with Dr. Neumann within a week and with myself within 2 to 3 days for PT/INR through my office. He will be resuming his home Coumadin dose of 7 mg nightly, which he is on currently. Continue Dilaudid or [place] for pain. Continue Robaxin. cc: Duy Jamil MD
== END 2018-03-15 14:48 | disposition home health service (06) | DRG 717 ==
LOC: DIRADM 13:34 → 4N 13:52
PROVIDERS: ADMIT Family Medicine; ATTEND Family Medicine
PROC: MS.IRRD (2018-03-10 10:50)
PROC: [UNRECOGNIZED PROCEDURE] (2018-03-10 10:50)
CPT/HCPCS: 80048; 80053; 80202; 81001; 82948; 83036; 83605; 83880; 85025; 85610; 85730; 87040; 87070; 87075; 93306; 94640; 94761; 94799; 97110; 97116; 97162; 97530; A9270; C8929; J1170; J1650; J2185; J2405; J3370; J3430; J7040; Q9957; XXXXX

== ENCOUNTER 2018-03-28 13:09 | Inpatient (IN) ==
[2018-03-28] MEDS ORDERED: NS 1,000 ML IV ONE (14:23)
[2018-03-28] MEDS ORDERED: MORPHINE IV ONE (14:29)
--- NOTE | 2018-03-28 14:47 | Diag Imaging Result Doc PS360 ---
EXAM: CHEST-PORTABLE 03/28/2018 HISTORY: low blood pressure TECHNIQUE: AP portable at 1431 COMMENT: There is cardiomegaly. There may be a hiatal hernia. Compared to 03/20/2018 the basilar opacities previously present have improved. IMPRESSION: Improved atelectasis or pneumonia. Electronically signed by Kel Sarmiento 03/28/2018 2:45 PM
[2018-03-28 14:48] LABS: URINE SOURCE CATH
[2018-03-28 14:55] LABS: INR 4.08
[2018-03-28 14:56] LABS: BASO# 0.02 X1000 (0.0-0.2); BASO% 0.3 % (0.0-0.8); EOS# 0.24 X1000 (0.0-0.7); EOS% 3.5 % (0.0-10.0); HEMATOCRIT 41.6 % (42.0-52.0); LYMPH# 0.86 X1000 (1.2-3.4); LYMPH% 12.4 % (20.5-51.1); MCH 31.3 PG (27-31); MCHC 31.3 g/dL (33-37); MCV 100.2 FL (81-99); MONO# 0.56 X1000 (0.11-0.59); MONO% 8.1 % (1.7-9.3); MPV 10.4 FL (7.4-10.4); NEUT# 5.24 X1000 (1.4-6.5); NEUT% 75.7 % (42.2-75.2); PLT 157 X1000 (130-400); RBC 4.15 XMIL (4.7-6.1); RDW 15.2 % (11.5-14.5); WBC 6.92 X1000 (4.8-10.8)
[2018-03-28 14:58] LABS: BILIRUBIN URINE NEGATIVE (NEGATIVE); BLOOD URINE SMALL (NEGATIVE); COLOR YELLOW; GLUCOSE URINE NEGATIVE (NEGATIVE); KETONE URINE NEGATIVE (NEGATIVE); LEUKOCYTES URINE NEGATIVE (NEGATIVE); NITRITE URINE NEGATIVE (NEGATIVE); PH URINE 6.5; PROTEIN URINE NEGATIVE (NEGATIVE); SP GRAVITY URINE 1.003; TURBIDITY URINE CLEAR (CLEAR); UR EPITHELIAL CELLS <10 /HPF (<10); URINE BACTERIA NEGATIVE /HPF; URINE RBC 20-40 /HPF (<10); URINE WBC <10 /HPF (<10); UROBILINOGEN URINE NORMAL (NORMAL)
[2018-03-28 15:03] LABS: PROTIME 42.3 Seconds (11.0-16.0); PTT 102.2 Seconds (22.3-41.8)
[2018-03-28 15:28] LABS: ALBUMIN 3.6 g/dL (3.5-5.0); CALCIUM 9.4 mg/dL (8.8-10.2); CREATININE 3.3 mg/dL (0.7-1.2); TOTAL BILIRUBIN 0.61 mg/dL (0.20-1.00); TOTAL PROTEIN 7.3 g/dL (6.3-8.3)
[2018-03-28 15:36] LABS: POTASSIUM 4.7 mmol/L (3.5-5.1)
--- NOTE | 2018-03-28 17:18 | PROVIDER DOCUMENTATION ---
This chart was entered by Ivet Juarez Scribe, acting as scribe for Keron Pedraza MD. HPI-General Adult - General Chief Complaint: Post Op Complaint Stated Complaint: I & D PAIN - SYNCOPAL EPISODE Time Seen by Provider: 03/28/18 13:48 Source: patient, family Allergies/Adverse Reactions: Patient Allergies Allergy/AdvReac Type Severity Reaction Status Date / Time No Known Allergies Allergy Verified 03/20/18 10:46 Home Medications: Home Medication List Medication Instructions Recorded Confirmed Last Taken Type Bisoprolol [Zebeta] 5 mg PO DAILY #30 tablet 05/21/15 03/06/18 11/29/16 Rx Allopurinol 300 mg PO DAILY 05/07/17 03/06/18 Unknown History Pregabalin [Lyrica] 150 mg PO TID 05/07/17 03/06/18 Unknown History Warfarin Sodium [Coumadin] 7 mg PO QHS 05/07/17 03/06/18 Unknown History Furosemide [Lasix] 80 mg PO DAILY 03/06/18 03/06/18 03/05/18 06:00 History Levothyroxine [Synthroid] 112 microgm PO DAILY 03/06/18 03/06/18 Unknown History Trazodone [Desyrel] 100 mg PO DAILY 03/06/18 03/06/18 Unknown History Acetaminophen [Tylenol] 650 mg PO Q6H PRN PRN tablet 03/14/18 Unknown Rx CephALEXIN [Keflex] 500 mg PO Q6HR #40 cap 03/14/18 Unknown Rx Doxycycline 100 mg PO BID #20 tab 03/14/18 Unknown Rx Famotidine [Pepcid] 40 mg PO BID #60 tab 03/14/18 Unknown Rx Glimepiride [Amaryl] 2 mg PO BID CC #60 tab 03/14/18 Unknown Rx Hydrocodone/APAP 7.5 mg/325 mg 1 each PO Q6H PRN PRN #20 tablet 03/14/18 Unknown Rx [[place]-7.5] Methocarbamol [Robaxin] 750 mg PO Q6H PRN PRN #45 tab 03/14/18 Unknown Rx Patient's Own Med 1 each SL DAILY misc 03/14/18 Unknown Rx Polyethylene Glycol 3350 [Miralax] 17 gm PO DAILY #30 powder, packet 03/14/18 Unknown Rx Vit E Acetate/Gly/Dimeth/Water 1 ml TOP BID #30 bottle 03/14/18 Unknown Rx [Cetaphil Moisturizing Lot] Warfarin [Coumadin] 7 mg PO QHS tablet 03/14/18 Unknown Rx - History of Present Illness -Gen Adult Nature of Presenting Problems: 67yom c/o generalized malaise since this morning. The patient's reports that the patient had recent perineal and scrotal abscess debridement procedure by Dr. Neumann and he was sent to a retirement for rehab. He denies fever, chills, n,v,d,cp, and sob. The patient's is at bedside. Location of Pain/Injury: reports: generalized (generalized malaise) Pain Radiation: reports: no radiation Quality of Pain: reports: aching Severity: reports: mild Onset/Duration: reports: this morning Timing: reports: still present Context/Activities at Onset: reports: none Modifying Factors: improves with: nothing Associated Symptoms: denies: chest pain, diarrhea, fever/chills, nausea, shortness of breath, vomiting Similar Symptoms Previously?: No Recently seen or treated by another doctor?: No Review of Systems - Adult - REVIEW OF SYSTEMS - ADULT Constitutional: denies: chills, fever Eyes: denies: discharge, dry eyes Ears, Nose, Mouth & Throat: denies: ear discharge, ear pain Cardiovascular: denies: chest pain, palpitations Respiratory: denies: cough, shortness of breath Gastrointestinal: denies: abdominal pain, diarrhea, nausea, vomiting Genitourinary: denies: dysuria, hematuria Musculoskeletal: reports: other (generalized malaise). denies: back pain Integumentary: reports: no symptoms reported Neurological: denies: dizziness/vertigo, headache/migraines Psychiatric: reports: no symptoms reported Endocrine: reports: no symptoms reported Hematologic/Lymphatic: reports: no symptoms reported Allergic/Immunologic: reports: no symptoms reported All Other Systems: Reviewed and Negative Past History - Adult - PAST MEDICAL HISTORY-ADULT Review of Records: reports: Old Records Reviewed, Nursing Assessment Review, Medications Reviewed Major Childhood Illnesses: reports: denies history Cardiovascular: reports: HTN Respiratory: reports: denies history Gastrointestinal: reports: denies history Obstetrical/Gynecological: reports: denies history Genitourinary: reports: denies history Musculoskeletal: reports: chronic pain, neck/back injury Neurological: reports: denies history Endocrine/Immune: reports: Diabetes, thyroid disorder Other Conditions: reports: denies history - PRIOR SURGERIES/PROCEDURES Surgical/Procedure History: reports: back/neck - IMMUNIZATION STATUS Childhood Immunizations: See Nurse Assessment Flu Vaccine: See Nurse Assessment - FAMILY HISTORY Family History: reviewed, not pertinent - SOCIAL HISTORY Smoking: other (former) Substance Use: denies Living Situation: family Physical Exam-General - PHYSICAL EXAM-ADULT Exam Limited by: morbid obesity Initial Vital Signs Reviewed: Yes - CONSTITUTIONAL General Appearance: obese, other (ill-looking, weak-looking) - EYES Eyes: PERRL/EOMI, pink conjunctivae - NECK Neck: non-tender, supple - RESPIRATORY Respiratory: decreased breath sounds. negative: crackles, wheezing - CARDIOVASCULAR Cardiovascular: regular rate, rhythm, no murmur - GASTROINTESTINAL (ABDOMEN) Abdominal Exam: non tender, soft, other (sutures perineal and scrotal area, mild opening in suture line, no drainage from surgical site) - GENITOURINARY Male Genitalia: erythema (minimal), other (ramos cath in place from surgery). negative: scrotal swelling - MUSCULOSKELETAL Extremity: normal range of motion, non-tender - SKIN Integumentary: normal color, warm/dry - NEUROLOGIC Neurologic: grossly normal, no motor/sensory deficits - PSYCHIATRIC Psych/Mental Status: normal mood/affect, normal thought content, normal thought process, oriented x 3 Progress - PLAN OF CARE/RESULTS Progress/Plan/Lab Results: Vital Signs - 8 hr 03/28/18 13:55 03/28/18 13:56 03/28/18 14:19 Temperature 98.1 F Pulse Rate 73 72 72 Respiratory Rate 20 14 Blood Pressure 123/71 123/71 121/89 O2 Sat by Pulse Oximetry 99 98 99 Laboratory Results - last 24 hr 03/28/18 03/28/18 03/28/18 14:14 14:14 14:14 WBC 6.92 RBC 4.15 L Hgb 13.0 L Hct 41.6 L MCV 100.2 H MCH 31.3 H MCHC 31.3 L RDW Std Deviation 15.2 H Plt Count 157 MPV 10.4 Immature Gran % (Auto) 0.0 Neut % (Auto) 75.7 H Lymph % (Auto) 12.4 L [place] % (Auto) 8.1 Eos % (Auto) 3.5 Baso % (Auto) 0.3 Immature Gran # (Auto) 0.00 Neut # (Auto) 5.24 Lymph # (Auto) 0.86 L [place] # (Auto) 0.56 Eos # (Auto) 0.24 Baso # (Auto) 0.02 PT INR PTT (Actin FS) Sodium 140 Potassium 4.7 Chloride 95 L Carbon Dioxide 30 Anion Gap 15 BUN 47 H Creatinine 3.3 H Estimated GFR/1.73 m2 19 BUN/Creatinine Ratio 14 Glucose 137 H POC Glucose Calculated Osmolality 294 Calcium 9.4 Magnesium 2.0 Total Bilirubin 0.61 AST 20 ALT 12 Alkaline Phosphatase 130 H Creatine Kinase 60 Troponin T Frc-W-Snhiiqjbkbr Pept Total Protein 7.3 Albumin 3.6 Globulin 3.7 Albumin/Globulin Ratio 1.0 Plasma Lactate 1.5 Urine Source Urine Color Urine Turbidity Urine pH Ur Specific [place] Urine Protein Ur Glucose (Stick) Ur Ketones (Stick) Urine Blood Urine Nitrite Urine Bilirubin Urobilinogen Dipstick Urine Leukocytes Urine WBC (Auto) Urine RBC (Auto) U Epithel Cells (Auto) Urine Bacteria (Auto) 03/28/18 03/28/18 03/28/18 14:14 14:14 14:14 WBC RBC Hgb Hct MCV MCH MCHC RDW Std Deviation Plt Count MPV Immature Gran % (Auto) Neut % (Auto) Lymph % (Auto) [place] % (Auto) Eos % (Auto) Baso % (Auto) Immature Gran # (Auto) Neut # (Auto) Lymph # (Auto) [place] # (Auto) Eos # (Auto) Baso # (Auto) PT 42.3 H INR 4.08 PTT (Actin FS) 102.2 H Sodium Potassium Chloride Carbon Dioxide Anion Gap BUN Creatinine Estimated GFR/1.73 m2 BUN/Creatinine Ratio Glucose POC Glucose Calculated Osmolality Calcium Magnesium Total Bilirubin AST ALT Alkaline Phosphatase Creatine Kinase Troponin T 0.026 Cld-P-Wjbvlkxgjkq Pept 226 Total Protein Albumin Globulin Albumin/Globulin Ratio Plasma Lactate Urine Source Urine Color Urine Turbidity Urine pH Ur Specific [place] Urine Protein Ur Glucose (Stick) Ur Ketones (Stick) Urine Blood Urine Nitrite Urine Bilirubin Urobilinogen Dipstick Urine Leukocytes Urine WBC (Auto) Urine RBC (Auto) U Epithel Cells (Auto) Urine Bacteria (Auto) 03/28/18 03/28/18 14:28 14:43 WBC RBC Hgb Hct MCV MCH MCHC RDW Std Deviation Plt Count MPV Immature Gran % (Auto) Neut % (Auto) Lymph % (Auto) [place] % (Auto) Eos % (Auto) Baso % (Auto) Immature Gran # (Auto) Neut # (Auto) Lymph # (Auto) [place] # (Auto) Eos # (Auto) Baso # (Auto) PT INR PTT (Actin FS) Sodium Potassium Chloride Carbon Dioxide Anion Gap BUN Creatinine Estimated GFR/1.73 m2 BUN/Creatinine Ratio Glucose POC Glucose 161 H D Calculated Osmolality Calcium Magnesium Total Bilirubin AST ALT Alkaline Phosphatase Creatine Kinase Troponin T Pmv-A-Hxhkbgmztoh Pept Total Protein Albumin Globulin Albumin/Globulin Ratio Plasma Lactate Urine Source CATH Urine Color YELLOW Urine Turbidity CLEAR Urine pH 6.5 Ur Specific [place] 1.003 Urine Protein NEGATIVE Ur Glucose (Stick) NEGATIVE Ur Ketones (Stick) NEGATIVE Urine Blood SMALL A Urine Nitrite NEGATIVE Urine Bilirubin NEGATIVE Urobilinogen Dipstick NORMAL Urine Leukocytes NEGATIVE Urine WBC (Auto) <10 Urine RBC (Auto) 20-40 A U Epithel Cells (Auto) <10 Urine Bacteria (Auto) NEGATIVE Orders Category Date Time Status CHEST-PORTABLE [RAD] Stat Exams 03/28/18 14:23 Completed BLOOD CULTURE [BLDCUL] Stat Lab 03/28/18 14:12 Received CBC WITH ELECTRONIC DIFF [HEME] Stat Lab 03/28/18 14:14 Completed CK PROFILE [SP CHEM] Stat Lab 03/28/18 14:14 Completed COMPREHENSIVE METABOLIC PANEL [CHEM] Stat Lab 03/28/18 14:14 Completed LACTATE, PLASMA [CHEM] Stat Lab 03/28/18 14:14 Completed MAGNESIUM [CHEM] Stat Lab 03/28/18 14:14 Completed PRO B-NATRIURETIC PEPTIDE Stat Lab 03/28/18 14:14 Completed PT [PROTIME WITH INR] [COAG] Stat Lab 03/28/18 14:14 Completed PTT [COAG] Stat Lab 03/28/18 14:14 Completed TROPONIN T Stat Lab 03/28/18 14:14 Completed URINALYSIS W/POSS RFLX CULT [URINALYSIS] Stat Lab 03/28/18 14:43 Completed 0.9% Sodium Chloride Inj [Ns] 1,000 ml Med 03/28/18 14:23 Discontinued IV 999 mls/hr Morphine Med 03/28/18 14:29 Discontinued 2 mg IV NOW ONE Result Diagrams: 03/28/18 14:14 03/28/18 14:14 - EKG 1 Time of EKG reading by physician:: 16:20 EKG Read and Signed by:: Keron Pedraza EKG Interpretation (*Must complete 3 of following elements*): Abnormal Rate: 65 Rhythm: Junctional rhythm QRS: other (low voltage QRS) - XRAY 1 XRAY Study: Chest Impression: Abnormal ( COMMENT: There is cardiomegaly. There may be a hiatal hernia. Compared to 03/20/2018 the basilar opacities previously present have improved. IMPRESSION: Improved atelectasis or pneumonia.) - CONSULTS/PCP/HOSPITALIST Notification #1 *Consult/PCP/Hospitalist*: Dr. Tejeda Time Discussed: 16:48 Consult Disposition: Admit Departure - Departure Date of Disposition Decision: 03/28/18 Time of Disposition Decision: 16:48 DIAGNOSIS: Weakness, Elevated INR [id number]-khirlyg renal failure Qualifiers: Acute renal failure type: unspecified Chronic kidney disease stage: unspecified stage Qualified Code(s): N17.9 - Acute kidney failure, unspecified; N18.9 - Chronic kidney disease, unspecified Disposition: ADMITTED INPATIENT 09 Certified Medical Emergency: Emergent Condition: Serious Additional Freetext Instructions: ED Follow Up Instructions: You have been treated by a care provider in the Emergency Department. These instructions are being provided to you so you can have an understanding of how to care for yourself upon discharge. Upon discharge from the Emergency Department, you are responsible for making arrangements for follow-up care by a physician of your choice. Take all prescribed medications as directed. Return to the Emergency Department immediately for any new or worsening symptoms. You may call the Physician Referral phone number at [phone] to obtain a list of Physicians who are taking new patients. - Critical Care Note This patient required my direct & personal management of CC.: No Attestation - Physician/ ROCK Attestation Patient care was provided by Advanced Practice Provider:: No The physician spent face to face time with patient:: Yes Advanced Practice Provider documentation review:: Supervising physician onsite and consulted in the evaluation and care of this patient. The physician did have a face to face encounter with the patient. This chart was documented by the belkys bonilla, (Juarez,Ivet M., Scribe) and accurately reflects the services I performed and decisions made by me, Keron Pedraza MD, as attested by the provider's signature.
--- NOTE | 2018-03-28 17:40 | Diag Imaging Result Doc PS360 ---
EXAM: XRAY HIP UNILATERAL LT 03/28/2018 HISTORY: left hip pain TECHNIQUE: Left hip two views COMMENT: There is some narrowing of the joint space and hyperostosis of the lateral acetabular rim. These findings were also present on 04/27/2017 and there is no evidence of acute fracture or dislocation. IMPRESSION: Osteoarthritis. Electronically signed by Kel Sarmiento 03/28/2018 5:38 PM
[2018-03-28] MEDS ORDERED: NS 1,000 ML IV SCH (18:45)
[2018-03-28] MEDS: DOXYCYCLINE PO SCH (22:08)
[2018-03-28] MEDS: NS 1,000 ML IV SCH (22:08)
[2018-03-28] MEDS: LYRICA PO SCH (22:08)
[2018-03-28] MEDS: HUMULIN R SUBQ SCH (22:09)
[2018-03-28] MEDS: PROTONIX IV SCH (22:09)
[2018-03-28] MEDS: NORCO-7.5 PO PRN (22:16)
--- NOTE | 2018-03-29 00:35 | HISTORY AND PHYSICAL ---
CHIEF COMPLAINT: The patient has pain, syncope, decreased blood pressure. HISTORY OF PRESENT ILLNESS: He is a 67-year-old, morbidly obese, white male patient of Dr. Jamil, recently discharged from the hospital after he had a right scrotal abscess extending into the perineal. I and D was done with secondary suture debrided by Dr. Neumann. The patient had MRSA. He was sent home on doxycycline, and apparently he had some left hip pain and not able to ambulate. His blood pressure was low, and he was given IV fluid boluses. He is not able to ambulate in the [facility]. Basically, readmitted to the hospital with IV fluids, and also PT was slightly prolonged. No signs of any active bleeding noted. Basically, admitted to the hospital. Intravenous fluids. He was slightly azotemic. As a result, a hospital admission was warranted. PAST MEDICAL HISTORY: Morbid obesity, sleep apnea, chronic low back pain, history of pulmonary embolism, type 2 diabetes, chronic venous insufficiency in both lower extremities with stasis dermatitis, hypothyroidism, hypertension, gout, chronic kidney disease. PAST SURGICAL HISTORY: L5 disk removal in 1986, lumbar fusion, status post I and D of perineal abscess. MEDICATIONS: Nexium, allopurinol 300 daily, Lyrica 150 t.i.d., warfarin 1 mg at bedtime, trazodone 100 daily, Lasix 40 daily, Synthroid 112 mcg daily, doxycycline 100 p.o. b.i.d., [place] 7.5 q.6 p.r.n. pain, Robaxin 750 q.6 p.r.n. pain, MiraLAX 17 g daily, Amaryl 2 mg p.o. b.i.d. with meals, Pepcid 40 p.o. b.i.d., lisinopril 40 daily, nystatin powder 1 g topically daily, potassium 10 mEq daily, warfarin 6 mg daily. ALLERGIES: Not known. IMMUNIZATIONS: Prevenar was given 2015. Influenza vaccine November 2017. Zostavax was given in the past. SOCIAL HISTORY: He is to his for 50 years. Came from [facility]. Disabled. History of smoking 50 years. No alcohol abuse. FAMILY HISTORY: Notable for valve replacement in his mother, CAD in mother, stomach cancer in his grandparents, diabetes in the family. REVIEW OF SYSTEMS: HEENT: No headache. No vision problem. No earache. No sore throat. Cardiopulmonary: No chest pain, shortness of breath, PND, orthopnea. Gastrointestinal: No nausea, vomiting, abdominal pain, bleeding per rectum. Genitourinary: No history of hesitancy, frequency. Skin: He has a rash that is in the groin as well as on the face, on both legs, and arthritic pains in the knee. Not able to ambulate. Neurological: No obvious neurological symptoms or weakness or dizziness or seizures. Endocrine: He has history of diabetes with chronic kidney disease. OBJECTIVE: Vital signs: Temperature is 97.6 degrees. Initial blood pressure was 96/58 and mildly tachycardic. General: He is morbidly obese, not in respiratory distress. HEENT: Atraumatic, normocephalic. No anemia. No cyanosis. No jaundice. Seborrhea noted on the face. Neck: Supple. JVD not be seen. Chest: Bilateral air entry. Cardiovascular : Distant heart sounds. Abdomen: Belly is soft, obese, nontender. Suboptimal exam. Genitourinary: Hogan was placed. He also has tinea cruris in the groin. Perineal incision is healing well. No signs of cellulitis or abscess noted. Extremities: Bilateral stasis dermatitis changes noted in both legs. Neurologic: No focal deficits. INVESTIGATIONS: CBC: White cell count 6.9, hematocrit 42, platelet 157,000. PT 42, INR 4.0. SMA-7: Sodium 140, potassium 4.7, BUN 47, creatinine 3.3. Baseline creatinine on 03/12/2018 is 1.2. Urinalysis is clear. Blood cultures are pending. ASSESSMENT AND PLAN: 1. A 67-year-old white gentleman admitted to the hospital. Again, syncope due to hypotension. Hold lisinopril. He is also prerenal. Gentle hydration with 80 mL/hr. 2. Methicillin-resistant Staphylococcus aureus right scrotal abscess, on doxycycline. 3. Chronic pain, on [place]. 4. Stool softeners with MiraLAX. 5. Reconcile home medicines. 6. Type 2 diabetes, on Amaryl. Follow up on sliding scale with insulin coverage and reconcile home medications. 7. Physical Therapy consult for ambulation. 8. Incentive spirometry. 9. Living Will discussed, none reported. cc: Aaron Tejeda MD MTDD
[2018-03-29] MEDS: HUMULIN R SUBQ SCH ×4 (06:00→22:43)
[2018-03-29] MEDS: NORCO-7.5 PO PRN ×3 (06:03→20:50)
[2018-03-29] MEDS: NS 1,000 ML IV SCH ×3 (06:36→20:49)
[2018-03-29 07:05] LABS: BASO# 0.01 X1000 (0.0-0.2); BASO% 0.2 % (0.0-0.8); EOS# 0.34 X1000 (0.0-0.7); EOS% 5.9 % (0.0-10.0); HEMATOCRIT 37.5 % (42.0-52.0); HEMOGLOBIN 11.7 g/dL (14.0-18.0); LYMPH# 0.96 X1000 (1.2-3.4); LYMPH% 16.7 % (20.5-51.1); MCH 31.8 PG (27-31); MCHC 31.2 g/dL (33-37); MCV 101.9 FL (81-99); MONO# 0.54 X1000 (0.11-0.59); MONO% 9.4 % (1.7-9.3); MPV 10.5 FL (7.4-10.4); NEUT% 67.8 % (42.2-75.2); PLT 128 X1000 (130-400); RBC 3.68 XMIL (4.7-6.1); RDW 15.4 % (11.5-14.5); WBC 5.75 X1000 (4.8-10.8)
[2018-03-29 07:19] LABS: CALCIUM 9.4 mg/dL (8.8-10.2); CREATININE 2.7 mg/dL (0.7-1.2); POTASSIUM 4.5 mmol/L (3.5-5.1)
[2018-03-29 07:39] LABS: INR 3.84
[2018-03-29 07:40] LABS: PROTIME 40.4 Seconds (11.0-16.0)
[2018-03-29] MEDS ORDERED: AMARYL PO SCH (08:00)
[2018-03-29] MEDS ORDERED: CALMOSEPTINE OINTMENT TOP PRN (09:07)
[2018-03-29] MEDS: SYNTHROID PO SCH (09:17)
[2018-03-29] MEDS: DESYREL PO SCH (09:17)
[2018-03-29] MEDS: DOXYCYCLINE PO SCH ×2 (09:18→20:50)
[2018-03-29] MEDS: MIRALAX PO SCH (09:18)
[2018-03-29] MEDS: LYRICA PO SCH ×3 (09:18→20:50)
[2018-03-29] MEDS: MYCOSTATIN POWDER TOP SCH (09:18)
[2018-03-29] MEDS: ZYLOPRIM PO SCH (09:18)
[2018-03-29] MEDS: ROBAXIN PO PRN ×2 (13:35→20:50)
--- NOTE | 2018-03-29 15:04 | CONSULTATION ---
DATE OF CONSULTATION: 03/29/2018. ATTENDING PHYSICIAN: Duy Jamil MD. REFERRING PHYSICIAN: Lorelei Tejeda MD. HISTORY OF PRESENT ILLNESS: This 67-year-old male has multiple medical problems. He had a right perianal, perineal and left scrotal abscess. He underwent incision, drainage and debridement. The wound was cared for and developed good granulation tissue. This was secondarily closed on March 14, 2018. He is morbidly obese and states that he cannot walk. He would like to keep the Hogan catheter in place. He was scheduled to come to the urology clinic on March 31 for suture removal, but he was admitted because of decreasing blood pressure and possible syncopal episode. Please see the dictated consult note of March 06, 2018. PHYSICAL EXAMINATION: General: A morbidly-obese, age-apparent, white male oriented all ways and cooperative. HEENT: Normal for age. Lungs: Clear. Cardiovascular: Regular rate and rhythm. Abdomen: Morbidly obese with large pannus. : Marked scrotal edema and edema of foreskin. Hogan catheter in place. Foreskin is completely reduced. Extremities: +2 edema. No cyanosis or clubbing. Neurological: No focal deficits. LABORATORY: White count 5.75, hemoglobin 11.7, hematocrit 37.5 and platelets are 128,000. Serum electrolytes are normal. BUN 39, creatinine 2.7. IMPRESSION: Status post incision, drainage and debridement of the right perianal, perineal and left scrotal abscess with subsequent secondary closure. It is about time for the sutures to be removed. RECOMMENDATIONS: Recommend removing sutures in the main OR since the patient is morbidly obese and cannot stand. This will allow exposure of the complete perianal, perineal and scrotal area. This will be done on April 02, 2018. This was discussed with the patient and . Discussed that he could certainly develop another abscess. They seemed to understand and desire to proceed. cc: MD Aaron Valdez MD
--- NOTE | 2018-03-29 15:06 | PROGRESS NOTE ---
DATE: 03/29/2018 SUBJECTIVE: A 67-year-old morbidly obese male admitted to the hospital with hypertension. Last night blood sugars dropped to 39. He is not able to ambulate. I discussed with Dr. Neumann. He is going to plan to leave him with the sutures next week. REVIEW OF SYSTEMS: Blood sugars have dropped. PHYSICAL EXAMINATION: Temperature is 98, vitals are stable, oxygen saturation 97% on room air. He is morbidly obese. HEENT exam within normal limits. Poor air entry. Distant heart sounds. Belly is soft and nontender. Hogan was placed. Chronic venous stasis dermatitis changes noted in both legs. INVESTIGATIONS: CBC: White cell count 5.7, hematocrit 37, platelets 128,000. PT 40 and INR 3.8. SMA-7: BUN 39, creatinine 2.7, glucose 124. Blood sugar was 39 last night. ASSESSMENT AND PLAN: 1. Prerenal azotemia. Intravenous fluids 80 an hour. Follow up on SMA-7. 2. History of pulmonary embolism. INR is 3.8. Will hold the Coumadin and when the INR reaches below 3 we will resume his Coumadin. He is going to prolong in light of chronic kidney disease as well as antibiotics. 3. Methicillin-resistant Staphylococcus aureus, on oral doxycycline. 4. Hypoglycemia. Decrease Amaryl to 1 mg orally twice a day and because of the chronic kidney disease. 5. Gout. On Zyloprim. 6. Methicillin-resistant Staphylococcus aureus scrotal abscess. Dr. Neumann was consulted. 7. MiraLAX was added. 8. Chronic kidney disease. Continue to monitor. 9. Chronic pain, on [place] and Physical Therapy for ambulation. Discussed the plan of care with the family at bedside. Continue to monitor his blood pressure. Will hold lisinopril and daily CBC, BMP, PT/INR. Dr. Ramírez is going to monitor tomorrow. LEVEL OF DOCUMENTATION: 25 minutes. cc: Aaron Tejeda MD [facility]
[2018-03-29] MEDS: AMARYL PO SCH (16:10)
[2018-03-29] MEDS: PROTONIX IV SCH (18:06)
[2018-03-30] MEDS: NORCO-7.5 PO PRN ×2 (05:22→11:53)
[2018-03-30] MEDS: ROBAXIN PO PRN ×3 (05:22→20:26)
[2018-03-30] MEDS: HUMULIN R SUBQ SCH ×4 (06:10→20:27)
[2018-03-30 07:23] LABS: INR 3.17; PROTIME 34.7 Seconds (11.0-16.0)
[2018-03-30 07:24] LABS: BASO# 0.01 X1000 (0.0-0.2); BASO% 0.2 % (0.0-0.8); EOS# 0.33 X1000 (0.0-0.7); EOS% 5.7 % (0.0-10.0); HEMATOCRIT 33.8 % (42.0-52.0); HEMOGLOBIN 10.4 g/dL (14.0-18.0); LYMPH% 17.3 % (20.5-51.1); MCH 31.6 PG (27-31); MCHC 30.8 g/dL (33-37); MCV 102.7 FL (81-99); MONO# 0.52 X1000 (0.11-0.59); MPV 10.6 FL (7.4-10.4); NEUT# 3.91 X1000 (1.4-6.5); NEUT% 67.8 % (42.2-75.2); PLT 114 X1000 (130-400); RBC 3.29 XMIL (4.7-6.1); WBC 5.77 X1000 (4.8-10.8)
[2018-03-30 07:38] LABS: CREATININE 2.1 mg/dL (0.7-1.2); POTASSIUM 4.6 mmol/L (3.5-5.1)
[2018-03-30] MEDS: MIRALAX PO SCH (09:51)
[2018-03-30] MEDS: DESYREL PO SCH ×2 (09:52→20:27)
[2018-03-30] MEDS: MYCOSTATIN POWDER TOP SCH (09:52)
[2018-03-30] MEDS: AMARYL PO SCH ×3 (09:53→18:20)
[2018-03-30] MEDS: DOXYCYCLINE PO SCH ×2 (09:53→20:27)
[2018-03-30] MEDS: SYNTHROID PO SCH (09:53)
[2018-03-30] MEDS: ZYLOPRIM PO SCH (09:54)
[2018-03-30] MEDS: LYRICA PO SCH ×3 (09:54→20:28)
[2018-03-30] MEDS: NS 1,000 ML IV SCH ×2 (11:52→20:30)
--- NOTE | 2018-03-30 17:04 | PROGRESS NOTE ---
DATE: 03/30/2018 Mr. Asencio still complains of a lot of pain in his scrotal area. He has a history of scrotal abscess which was operated by Dr. Neumann. He has had staph infection and has been on doxycycline. His blood cultures have been negative so far. Coumadin has been held. His INR was 3.17. His white count is 5.77, hemoglobin 10.4, hematocrit 33.8. Overall condition is otherwise unchanged. -3 cc: MD Aaron Causey MD
[2018-03-30] MEDS: PROTONIX IV SCH (18:25)
[2018-03-30] MEDS: SODIUM CHLORIDE 0.9% INJ SCH (18:25)
[2018-03-30] MEDS: NORCO-10 PO PRN (20:27)
[2018-03-31] MEDS: NORCO-10 PO PRN ×4 (02:22→20:41)
[2018-03-31] MEDS: ROBAXIN PO PRN ×4 (02:22→20:41)
[2018-03-31] MEDS: HUMULIN R SUBQ SCH ×4 (06:30→21:38)
[2018-03-31 07:35] LABS: BASO# 0.02 X1000 (0.0-0.2); BASO% 0.4 % (0.0-0.8); EOS# 0.49 X1000 (0.0-0.7); EOS% 10.3 % (0.0-10.0); HEMATOCRIT 35.6 % (42.0-52.0); HEMOGLOBIN 11.2 g/dL (14.0-18.0); LYMPH# 1.05 X1000 (1.2-3.4); LYMPH% 22.2 % (20.5-51.1); MCH 31.9 PG (27-31); MCHC 31.5 g/dL (33-37); MCV 101.4 FL (81-99); MONO% 10.5 % (1.7-9.3); MPV 10.3 FL (7.4-10.4); NEUT# 2.68 X1000 (1.4-6.5); NEUT% 56.6 % (42.2-75.2); PLT 109 X1000 (130-400); RBC 3.51 XMIL (4.7-6.1); RDW 14.7 % (11.5-14.5); WBC 4.74 X1000 (4.8-10.8)
[2018-03-31 07:36] LABS: INR 2.41; PROTIME 27.9 Seconds (11.0-16.0)
[2018-03-31 07:55] LABS: CALCIUM 8.8 mg/dL (8.8-10.2); CREATININE 1.6 mg/dL (0.7-1.2); POTASSIUM 4.8 mmol/L (3.5-5.1)
--- NOTE | 2018-03-31 08:10 | EKG Report ---
Test Performed on : 03/28/2018 4:18:50 PM Test Reason : NO EKG ORDER FOR MUSE Blood Pressure : / mmHG Vent. Rate : 065 BPM Atrial Rate : 064 BPM P-R Int : 000 ms QRS Dur : 074 ms QT Int : 436 ms P-R-T Axes : 000 020 023 degrees QTc Int : 453 ms Junctional rhythm. Low voltage QRS Abnormal ECG When compared with ECG of 20-MAR-2018 10:54, (Unconfirmed) Junctional rhythm. has replaced Sinus rhythm. Nonspecific T wave abnormality, improved in Inferior leads Nonspecific T wave abnormality no longer evident in Anterolateral leads Unconfirmed Result
[2018-03-31] MEDS: SYNTHROID PO SCH (08:41)
[2018-03-31] MEDS: DESYREL PO SCH (08:41)
[2018-03-31] MEDS: DOXYCYCLINE PO SCH ×2 (08:42→20:41)
[2018-03-31] MEDS: ZYLOPRIM PO SCH (08:42)
[2018-03-31] MEDS: MIRALAX PO SCH (08:43)
[2018-03-31] MEDS: AMARYL PO SCH ×2 (08:43→17:39)
[2018-03-31] MEDS: MYCOSTATIN POWDER TOP SCH (08:44)
[2018-03-31] MEDS: NS 1,000 ML IV SCH ×2 (08:44→12:51)
[2018-03-31] MEDS: LYRICA PO SCH ×3 (08:46→20:41)
--- NOTE | 2018-03-31 12:30 | PROGRESS NOTE ---
DATE: 03/31/2018 Mr. Asencio was admitted with a history of syncope from hypotension. Lisinopril has been held. He had MRSA with right scrotal abscess. He is being seen by Dr. Neumann and has been on doxycycline. Dr. Neumann is probably going to remove the sutures tomorrow. His vital signs reveal blood pressure 125/44. Blood sugar was around 102. He is on allopurinol, doxycycline, glimepiride, hydrocodone 10, insulin protocol, methocarbamol, nystatin. He is not getting any medications that would significantly bring the blood pressure down. We will continue to watch him. -6 cc: MD Aaron Causey MD
[2018-03-31] MEDS: PROTONIX IV SCH (17:44)
[2018-04-01] MEDS: NORCO-10 PO PRN ×4 (03:20→19:52)
[2018-04-01] MEDS: NS 1,000 ML IV SCH ×2 (03:21→15:03)
[2018-04-01] MEDS: HUMULIN R SUBQ SCH ×4 (06:16→20:57)
[2018-04-01] MEDS: MIRALAX PO SCH (08:34)
[2018-04-01] MEDS: DESYREL PO SCH (08:34)
[2018-04-01] MEDS: AMARYL PO SCH ×2 (08:34→17:59)
[2018-04-01] MEDS: ZYLOPRIM PO SCH (08:34)
[2018-04-01] MEDS: DOXYCYCLINE PO SCH ×3 (08:34→20:57)
[2018-04-01] MEDS: SYNTHROID PO SCH (08:34)
[2018-04-01] MEDS: LYRICA PO SCH ×4 (08:34→20:57)
[2018-04-01] MEDS: MYCOSTATIN POWDER TOP SCH (08:35)
--- NOTE | 2018-04-01 11:46 | PROGRESS NOTE ---
DATE: 04/01/2018 SUBJECTIVE: A 67-year-old, white gentleman, morbidly obese, admitted with weakness, syncopal episode. The patient does have multiple medical problems. Recently had a scrotal abscess drained with secondary suturing. Wound culture grew MRSA. Patient was on doxycycline. Patient was at assisted living facility. He was not getting better. The patient was getting weak and complaining of pain. Blood pressure was low. Patient was slightly azotemic. The patient was brought to the emergency room and subsequently admitted for further care. The patient is still complaining of pain in the left hip and lower back. No high-grade fever or chills. The patient is very vague and a poor historian. No nausea or vomiting. Denied any diarrhea. No typical chest pain. No unusual cough or expectoration. Admission history and physical noted. PAST MEDICAL HISTORY: Significant for gout, chronic kidney disease, hypertension, hypothyroidism, stasis dermatitis in the lower limbs, morbid obesity, sleep apnea, chronic back pain, history of pulmonary embolism, NIDDM. CURRENT MEDICATIONS: Noted. OBJECTIVE: Vital Signs: Blood pressure 156/71, pulse 72, respiration 18, temperature 98.7. Skin: The patient does have evidence of stasis dermatitis in both legs. Morbidly obese. Neck supple. No JVD. Lungs: Bibasilar crepitations. Heart: S1 and S2 heard. Abdomen soft, globular. Bowel sounds present. Extremities: No bilateral leg swelling. 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 Able to move all 4 limbs. LABORATORY DATA: His lab data done yesterday, hemoglobin 11.2, hematocrit 35.6. WBC count 4.74, platelet count 109,000. PT/INR 2.41. BUN 29, creatinine 1.6. MEDICAL PROBLEMS: 1. The patient had a scrotal abscess status post incision and drainage. Clinically doing better. White count is under control. 2. Coagulopathy clinically doing better. The patient's Coumadin was on hold. I am going to resume it today. 3. History of gout, on allopurinol. 4. Diabetes mellitus, on Amaryl. 5. Constipation. 6. History suggestive of peripheral neuropathy. 7. Chronic pain. 8. Sleep apnea. 9. Hypothyroidism, on Synthroid. PLAN: Overall plan discussed with the patient, and he is in agreement. cc: TorresMD Aaron Syed MD
[2018-04-01 12:32] LABS: ALLEN TEST YES; BE 2.6 mmoll (-3.0-3.0); BLOOD TYPE ARTERIAL; HCO3-(ACT) 26.9 mmoll (20.0-26.0); METHB 0.8 % (0.0-1.5); O2(CT) 15.3 mL/dL (15.0-23.0); O2HB 94.8 % (95.0-99.0); PCO2(98.6) 41 mmHg (35-45); PO2(98.6) 78 mmHg (60-100); SAMPLE BLOOD; THB 11.4 g/dL (11.5-17.4); pH(98.6) 7.43 (7.35-7.45)
[2018-04-01 12:33] LABS: MODALITY ROOM AIR
[2018-04-01] MEDS: ROBAXIN PO PRN ×2 (16:07→19:52)
[2018-04-01] MEDS: SODIUM CHLORIDE 0.9% INJ SCH (17:59)
[2018-04-01] MEDS: PROTONIX IV SCH (17:59)
[2018-04-01] MEDS: COUMADIN PO SCH ×2 (19:52→20:57)
[2018-04-02] MEDS: NS 1,000 ML IV SCH ×2 (02:15→18:35)
[2018-04-02] MEDS: NORCO-10 PO PRN (02:52)
[2018-04-02] MEDS: HUMULIN R SUBQ SCH ×4 (06:13→20:50)
[2018-04-02 06:49] LABS: BASO# 0.02 X1000 (0.0-0.2); BASO% 0.4 % (0.0-0.8); EOS# 0.52 X1000 (0.0-0.7); EOS% 10.8 % (0.0-10.0); HEMATOCRIT 34.8 % (42.0-52.0); HEMOGLOBIN 11.1 g/dL (14.0-18.0); LYMPH# 0.88 X1000 (1.2-3.4); LYMPH% 18.2 % (20.5-51.1); MCH 31.8 PG (27-31); MCHC 31.9 g/dL (33-37); MCV 99.7 FL (81-99); MONO# 0.43 X1000 (0.11-0.59); MONO% 8.9 % (1.7-9.3); MPV 10.7 FL (7.4-10.4); NEUT# 2.98 X1000 (1.4-6.5); NEUT% 61.7 % (42.2-75.2); PLT 104 X1000 (130-400); RBC 3.49 XMIL (4.7-6.1); RDW 14.5 % (11.5-14.5); WBC 4.83 X1000 (4.8-10.8)
[2018-04-02 06:51] LABS: INR 1.78; PROTIME 22.1 Seconds (11.0-16.0)
[2018-04-02 07:09] LABS: ALB/GLOB RATIO 0.8; CALCIUM 8.7 mg/dL (8.8-10.2); CREATININE 1.2 mg/dL (0.7-1.2); POTASSIUM 4.7 mmol/L (3.5-5.1); TOTAL BILIRUBIN 0.74 mg/dL (0.20-1.00); TOTAL PROTEIN 6.8 g/dL (6.3-8.3)
[2018-04-02] MEDS: MYCOSTATIN POWDER TOP SCH (08:35)
--- NOTE | 2018-04-02 08:49 | PROGRESS NOTE ---
DATE: 04/02/2018 SUBJECTIVE: The patient is in some pain with chronic back pain and also some perineal discomfort. He is scheduled for suture removal per Dr. Neumann today. This will be done of the perineal area, which had been I and D 'd of abscess several days ago. OBJECTIVE: Vital Signs: Afebrile, pulse 65, respirations 17, blood pressure 143/80, O2 saturation on room air 98% to 100%. CV: RRR. Lungs: CTA. Abdomen: Protuberant, soft. Active bowel sounds. Nontender, nondistended. Morbid obesity. Extremities: Trace lower extremity edema. Minimal redness to the shins bilaterally, not much improved from the past. Neurologic: Cranial nerves are intact. LABS: Sodium 142, potassium 4.7, chloride 108, CO2 25. BUN 19, creatinine 1.2. Blood sugar 85- 119. White count 4.83, hemoglobin 11.1, platelets 104. INR 1.78, just resuming his Coumadin. ASSESSMENT: 1. History of perineal/scrotal abscess status post incision and drainage, stable on doxycycline. 2. Morbid obesity. 3. Coagulopathy with just now resuming his Coumadin as his INR was up some with him being on the antibiotics. 4. Chronic low back pain. 5. Type 2 diabetes mellitus. 6. Gout. 7. Peripheral neuropathy. 8. Obstructive sleep apnea. 9. Hypothyroidism. 10. History of severe pulmonary thromboembolism remotely. 11. Renal insufficiency. PLAN: The patient is to go down for suture removal to the OR today per Dr. Neumann. Continue oral doxycycline. We will hold his Amaryl due to him being n.p.o. We will change his trazodone to nightly dosage for chronic insomnia. Continue Coumadin as he has had a history of severe PTE remotely. Continue to control his pain with [place] 10 and with Robaxin p.r.n. cc: MD Aaron Eldridge MD
[2018-04-02] MEDS: LYRICA PO SCH ×3 (09:59→20:01)
[2018-04-02] MEDS ORDERED: DIPRIVAN 1% ONE (10:20)
[2018-04-02] MEDS ORDERED: XYLOCAINE-MPF 2% ONE (10:20)
[2018-04-02] MEDS ORDERED: FENTANYL ONE (10:20)
[2018-04-02] MEDS ORDERED: VERSED ONE (10:20)
[2018-04-02] MEDS ORDERED: MORPHINE ONE ×2 (11:58→12:05)
--- NOTE | 2018-04-02 12:34 | OPERATIVE NOTE ---
PROCEDURE DATE: 04/02/2018 SURGEON: Dr. Mike Neumann. PREOPERATIVE DIAGNOSIS: Status post incision, drainage, debridement and then secondary closure of a right perianal, perineal and left scrotal wound with indwelling permanent sutures. POSTOPERATIVE DIAGNOSIS: Status post incision, drainage, debridement and then secondary closure of a right perianal, perineal and left scrotal wound with indwelling permanent sutures with approximately the middle third of the wound dehisced. PROCEDURE PERFORMED: Remove permanent sutures, clean wound and surrounding area. ANESTHESIA: IV sedation with monitored anesthesia care. FINDINGS: The wound was healed on the scrotum and at the right perianal area. The perineal portion had dehisced. There was much debris and fecal material in the wound and around the wound. INDICATION FOR PROCEDURE: This 67-year-old male has a history of a right perianal, perineal and scrotal abscess. He underwent incision and drainage and debridement, and then several days later repeat debridement with secondary closure. The patient presents for reexamination of the wound and removal of any sutures. DESCRIPTION OF PROCEDURE: After informed consent was obtained from the patient and him receiving his routine antibiotics, he was taken to the main OR, placed in the supine position. IV sedation was achieved. He was then placed in the lithotomy position in the [facility]. Findings are as noted above. The wound is granulating well. The wound was completely washed out, as well as the area around the wound. It was decided to not close this area again and allow it to finish granulating in. His Hogan catheter was removed. He tolerated this procedure well. Estimated blood loss was zero. He was taken to recovery room in good condition. cc: MD Aaron Valdez MD
[2018-04-02] MEDS: DOXYCYCLINE PO SCH ×2 (14:57→20:01)
[2018-04-02] MEDS: ROBAXIN PO PRN ×2 (14:57→20:01)
[2018-04-02] MEDS: ZYLOPRIM PO SCH (14:58)
[2018-04-02] MEDS: MIRALAX PO SCH (14:58)
[2018-04-02] MEDS: SYNTHROID PO SCH (14:58)
[2018-04-02] MEDS: PROTONIX IV SCH (18:36)
[2018-04-02] MEDS: SODIUM CHLORIDE 0.9% INJ SCH (18:36)
[2018-04-02] MEDS: DESYREL PO SCH (20:01)
[2018-04-02] MEDS: COUMADIN PO SCH (20:01)
[2018-04-03] MEDS: NS 1,000 ML IV SCH (01:51)
[2018-04-03] MEDS: NORCO-10 PO PRN ×3 (03:09→19:35)
[2018-04-03] MEDS: HUMULIN R SUBQ SCH ×4 (06:00→23:08)
[2018-04-03 07:12] LABS: INR 1.73; PROTIME 21.6 Seconds (11.0-16.0)
[2018-04-03] MEDS: DOXYCYCLINE PO SCH ×3 (09:07→23:08)
[2018-04-03] MEDS: LYRICA PO SCH ×4 (09:08→23:08)
[2018-04-03] MEDS: MIRALAX PO SCH (09:08)
[2018-04-03] MEDS: ZYLOPRIM PO SCH (09:09)
[2018-04-03] MEDS: SYNTHROID PO SCH (09:09)
[2018-04-03] MEDS: MYCOSTATIN POWDER TOP SCH (09:09)
[2018-04-03] MEDS ORDERED: SALINE LOCK IV FLUID XX ONE (09:18)
[2018-04-03] MEDS: ROBAXIN PO PRN ×2 (10:26→19:35)
--- NOTE | 2018-04-03 14:28 | PROGRESS NOTE ---
DATE: 04/03/2018 SUBJECTIVE: Patient is having a little bit better day today. He is trying to get up and move about a little more. Wound care is working with him on his perineal wound after patient had removal of the sutures yesterday. Apparently, about a third of the area had dehisced slightly, but is granulating in nicely without significant infection. He remains on the doxycycline for the wound. OBJECTIVE: Vital Signs: Afebrile. Pulse 61, respirations 18, blood pressure 119/55, O2 sat on room air 98%. General: Morbidly obese white male in no acute distress. Cardiovascular: RRR. Lungs: CTA. Abdomen: Protuberant, soft. Active bowel sounds. Nontender. Extremities: Trace lower extremity edema with mild to moderate redness along the mclean areas, about the same as yesterday. Overall improvement in lower extremity edema, but still present. Neurologic: Cranial nerves are intact. No focal deficits. INR is 1.73. ASSESSMENT: 1. Perineal/scrotal abscess status post I D a couple weeks ago, stable now status post removal of sutures per Dr. Neumann yesterday. The patient remaining on doxycycline and about a third of the wound has dehisced and is granulating in without significant abnormality. 2. Morbid obesity. 3. Coagulopathy, improved on lower dosage of Coumadin as he is now on antibiotics. 4. History of PTE, severe, remotely. 5. Chronic low back pain. 6. Type 2 diabetes mellitus. 7. Gout. 8. Peripheral neuropathy. 9. Osteoarthritis. 10. Hypothyroidism. 11. Chronic renal insufficiency. PLAN: information services tech is working with the patient and his regarding transfer back to rehab center as soon as a bed is available. We are holding his Amaryl at this time and blood sugars are in the 80s to low 00s, so we will continue to hold the Amaryl currently. Continue oral doxycycline. Continue wound care. We have him back on low-dose Coumadin and will repeat INR tomorrow and will likely need to adjust slightly upward on the Coumadin from 3 to 4 mg nightly, but I will wait until tomorrow to see what the INR is. Continue physical therapy aggressively. cc: MD Aaron Eldridge MD
[2018-04-03] MEDS: DESYREL PO SCH ×2 (19:36→23:08)
[2018-04-03] MEDS: COUMADIN PO SCH ×2 (19:36→23:07)
[2018-04-04] MEDS: HUMULIN R SUBQ SCH ×4 (06:00→20:47)
[2018-04-04 07:19] LABS: BASO# 0.01 X1000 (0.0-0.2); BASO% 0.2 % (0.0-0.8); EOS# 0.45 X1000 (0.0-0.7); EOS% 10.5 % (0.0-10.0); HEMATOCRIT 34.4 % (42.0-52.0); LYMPH# 0.88 X1000 (1.2-3.4); LYMPH% 20.5 % (20.5-51.1); MCH 31.7 PG (27-31); MCV 99.1 FL (81-99); MONO# 0.38 X1000 (0.11-0.59); MONO% 8.9 % (1.7-9.3); MPV 9.9 FL (7.4-10.4); NEUT# 2.57 X1000 (1.4-6.5); NEUT% 59.9 % (42.2-75.2); PLT 119 X1000 (130-400); RBC 3.47 XMIL (4.7-6.1); RDW 14.3 % (11.5-14.5); WBC 4.29 X1000 (4.8-10.8)
[2018-04-04 07:32] LABS: INR 1.8; PROTIME 22.3 Seconds (11.0-16.0)
[2018-04-04 07:41] LABS: CALCIUM 9.2 mg/dL (8.8-10.2); CREATININE 1.2 mg/dL (0.7-1.2)
[2018-04-04] MEDS: MIRALAX PO SCH (08:29)
[2018-04-04] MEDS: DOXYCYCLINE PO SCH ×2 (08:29→21:08)
[2018-04-04] MEDS: ZYLOPRIM PO SCH (08:29)
[2018-04-04] MEDS: MYCOSTATIN POWDER TOP SCH (08:29)
[2018-04-04] MEDS: SYNTHROID PO SCH (08:29)
[2018-04-04] MEDS: LYRICA PO SCH ×3 (08:29→21:08)
[2018-04-04] MEDS: PROTONIX PO SCH ×2 (08:29→21:08)
[2018-04-04] MEDS: NORCO-10 PO PRN ×2 (12:40→21:09)
--- NOTE | 2018-04-04 13:19 | PROGRESS NOTE ---
DATE: 04/04/2018 SUBJECTIVE: The patient says he feels a little bit better overall. He still having some chronic low back pain, maybe slightly improved with the muscle relaxer and with some PT. Overall is stable. OBJECTIVE: Vital Signs: Afebrile. Vital signs stable. CV: RRR. No murmur. Lungs: CTA. Morbid obesity. Abdomen: Very protuberant, soft, nontender, nondistended. Extremities: Trace to 1+ lower extremity edema with moderate redness and scaliness over the shins and feet, mainly scaliness. Neurologic: Cranial nerves are intact. No focal deficits. LABS: White count 4.29, hemoglobin 11, platelets 119. INR 1.8. Sodium 141, potassium 4.0, chloride 106, CO2 25. BUN 18, creatinine 1.2. Blood sugars 80s to the 120s. His calcium is 9.2. ASSESSMENT: 1. History of perineal/scrotal abscess status post incision and drainage a couple weeks ago, now on oral doxycycline. Sutures have been removed with one-third granulating in portion of the wound. Wound care in progress per Wound Care nurse. 2. Morbid obesity. 3. History of pulmonary thromboembolism, severe on chronic Coumadin therapy, getting back to near therapeutic now. 4. Chronic low back pain. 5. Type 2 diabetes mellitus, stable off medication. 6. Gout. 7. Peripheral neuropathy. 8. Osteoarthritis. 9. Hypothyroidism. 10. Mild chronic renal insufficiency. PLAN: Continue doxycycline. Leave Coumadin at 3 mg nightly with possible escalation at 3.5 mg nightly if his INR remains in the upper 1 range. Continue wound care. I spoke with the social security assessor and unfortunately there are no male beds available currently, and they are working on trying to get him rehab placement as soon as possible. cc: MD Aaron Eldridge MD
[2018-04-04] MEDS: ROBAXIN PO PRN (21:08)
[2018-04-04] MEDS: COUMADIN PO SCH (21:08)
[2018-04-04] MEDS: DESYREL PO SCH (21:08)
[2018-04-04] MEDS: AQUAPHOR OINTMENT TOP SCH (21:08)
[2018-04-05] MEDS: NORCO-10 PO PRN ×3 (03:14→20:09)
[2018-04-05] MEDS: ROBAXIN PO PRN ×2 (03:14→09:34)
[2018-04-05] MEDS: HUMULIN R SUBQ SCH ×3 (06:08→16:29)
[2018-04-05] MEDS: LYRICA PO SCH ×3 (09:28→20:09)
[2018-04-05] MEDS: DOXYCYCLINE PO SCH ×2 (09:28→20:09)
[2018-04-05] MEDS: ZYLOPRIM PO SCH (09:28)
[2018-04-05] MEDS: SYNTHROID PO SCH (09:28)
[2018-04-05] MEDS: AQUAPHOR OINTMENT TOP SCH ×2 (09:29→20:09)
[2018-04-05] MEDS: MYCOSTATIN POWDER TOP SCH (09:29)
[2018-04-05] MEDS: MIRALAX PO SCH (09:30)
--- NOTE | 2018-04-05 13:11 | PROGRESS NOTE ---
DATE: 04/05/2018 SUBJECTIVE: The patient is stable. He continues to work with physical therapy. He complains of back spasms and some jerking movements in his legs. He says he had a bowel movement this morning. OBJECTIVE: General: Morbid obesity. Vital Signs: Afebrile. Vital signs fairly stable. Blood pressure slightly increasing. CV: RRR without murmur. Lungs: Clear. Abdomen: Very protuberant. Active bowel sounds, nontender. Extremities: 1+ edema with some scaliness over the feet and lower leg, mclean areas. There is pronounced redness over the shins, left greater than right. This has been fairly stable recently. Neurologic: Cranial nerves are intact without focal deficits. ASSESSMENT: 1. History of perineal/scrotal abscess, status post incision and drainage a couple weeks ago, now on oral doxycycline with 1/3 of the wound having dehisced before suture removal, which was performed earlier in the week. Wound care continues to work on the wound and is granulating in well. 2. Morbid obesity. 3. Chronic low back pain. 4. History of pulmonary thromboembolism on chronic Coumadin therapy. 5. Type 2 diabetes mellitus. 6. Gout. 7. Peripheral neuropathy. 8. Osteoarthritis. 9. Hypothyroidism. 10. Mild chronic renal insufficiency. PLAN: Continue physical therapy and wound care and oral doxycycline. Continue Coumadin 3 mg nightly and will repeat INR in the morning. Possibly needing increase to 3.5 mg potentially. Mine Engineering Manager working to find a bed for the patient for rehab and continue strengthening as he is having a difficult time getting up out of bed. He is sitting on the side of the bed, but is having difficulty with his back. We will try to change to Baclofen from the Robaxin to see if that helps in regard to his back. cc: MD Aaron Eldridge MD
[2018-04-05] MEDS: LIORESAL PO SCH ×2 (16:48→20:09)
[2018-04-05] MEDS: DESYREL PO SCH (20:09)
[2018-04-05] MEDS: PROTONIX PO SCH (20:09)
[2018-04-05] MEDS: COUMADIN PO SCH (20:09)
[2018-04-06] MEDS: HUMULIN R SUBQ SCH ×5 (02:41→21:59)
[2018-04-06] MEDS: NORCO-10 PO PRN ×2 (05:38→18:20)
[2018-04-06 07:33] LABS: INR 1.71; PROTIME 21.3 Seconds (11.0-16.0)
[2018-04-06] MEDS: AQUAPHOR OINTMENT TOP SCH ×2 (10:34→20:24)
[2018-04-06] MEDS: SYNTHROID PO SCH (10:34)
[2018-04-06] MEDS: ZYLOPRIM PO SCH (10:35)
[2018-04-06] MEDS: LYRICA PO SCH ×4 (10:35→20:25)
[2018-04-06] MEDS: MYCOSTATIN POWDER TOP SCH (10:35)
[2018-04-06] MEDS: LIORESAL PO SCH (10:35)
[2018-04-06] MEDS: MIRALAX PO SCH (10:35)
[2018-04-06] MEDS: DOXYCYCLINE PO SCH ×2 (10:35→20:26)
--- NOTE | 2018-04-06 15:29 | PROGRESS NOTE ---
DATE: 04/06/2018 SUBJECTIVE: The patient apparently had some confusion last night. He woke up and was wanting to speak with his who was at home resting. He has not felt well today overall. Complains of pain in his low back that has been present and he complains of a cough that has started up. He says he generally just does not feel good and he feels cold. OBJECTIVE: Vital Signs: No fever identified. Temperature now is 97.0 axillary, pulse 60, respirations 14, blood pressure 136/55, O2 sat on room air 100%. Cardiovascular: RRR. Lungs: CTA. Abdomen: Protuberant, soft. Active bowel sounds. Bowel movements daily x 2 days. Extremities: 1+ lower extremity edema with mild redness to the shins that has not changed. Mild scaliness to the distal shins into the feet. INR this morning 1.71. ASSESSMENT: 1. Cough with malaise. 2. History of perineal/scrotal abscess status post I and D a couple of weeks ago, now on oral doxycycline with wound care ongoing. 3. Morbid obesity. 4. Chronic low back pain worsened with inactivity. 5. History of PTE, on chronic Coumadin therapy, getting back toward therapeutic. 6. Type 2 diabetes mellitus. 7. Gout. 8. Peripheral neuropathy. 9. Osteoarthritis. 10. Hypothyroidism. 11. Mild CRI. PLAN: We will check blood cultures x 2, BMP, CBC and portable chest x-ray. Will continue the oral doxycycline. We have changed him over to the baclofen yesterday from Robaxin and I am going to change him back to Robaxin as the Baclofen might have made him have some confusion. Will increase the Coumadin from 3 mg nightly to 4 mg nightly and monitor the INR daily, continue his other medications of Synthroid, doxycycline, allopurinol, trazodone at night, Protonix, MiraLAX, Lyrica, and we continue to apply Aquaphor to the legs with leg elevation and ongoing physical therapy. If his back pain is not improved, we may consider MRI LS spine tomorrow. cc: MD Aaron Eldridge MD
--- NOTE | 2018-04-06 15:30 | Diag Imaging Result Doc PS360 ---
EXAM: CHEST-PORTABLE 04/06/2018 HISTORY: cough TECHNIQUE: AP portable upright chest at 1515 COMMENT: There is cardiomegaly. There is increased pulmonary vascularity. There is a hiatal hernia. Compared to 03/28/2018 there has been no appreciable change. IMPRESSION: Cardiomegaly. Electronically signed by Kel Sarmiento 04/06/2018 3:27 PM
[2018-04-06 16:30] LABS: BASO# 0.02 X1000 (0.0-0.2); BASO% 0.4 % (0.0-0.8); EOS# 0.45 X1000 (0.0-0.7); EOS% 7.9 % (0.0-10.0); HEMATOCRIT 37.7 % (42.0-52.0); HEMOGLOBIN 12.3 g/dL (14.0-18.0); IMM GRAN# 0.02 X1000 (0.0-0.04); IMM GRAN% 0.4 % (0.0-0.5); LYMPH# 0.91 X1000 (1.2-3.4); LYMPH% 15.9 % (20.5-51.1); MCHC 32.6 g/dL (33-37); MCV 98.2 FL (81-99); MONO# 0.71 X1000 (0.11-0.59); MONO% 12.4 % (1.7-9.3); MPV 9.7 FL (7.4-10.4); PLT 150 X1000 (130-400); RBC 3.84 XMIL (4.7-6.1); RDW 14.7 % (11.5-14.5); WBC 5.71 X1000 (4.8-10.8)
[2018-04-06 16:44] LABS: AGAP 12; BUN 16 mg/dL (8-22); CALCIUM 9.4 mg/dL (8.8-10.2); CHLORIDE 103 mmol/L (98-107); COSMO 284; CREATININE 1.1 mg/dL (0.7-1.2); ESTIMATED GFR > 60; GLUCOSE 95 mg/dL (70-104); SODIUM 142 mmol/L (136-145); TCO2 27 mmol/L (25-35)
[2018-04-06] MEDS ORDERED: LASIX IV ONE (17:03)
[2018-04-06] MEDS: KLOR-CON PO SCH (18:20)
[2018-04-06] MEDS: DESYREL PO SCH (20:23)
[2018-04-06] MEDS: ROBAXIN PO SCH (20:23)
[2018-04-06] MEDS: PROTONIX PO SCH (20:23)
[2018-04-06] MEDS ORDERED: COUMADIN PO SCH (21:00)
[2018-04-07] MEDS: NORCO-10 PO PRN ×3 (00:28→16:10)
[2018-04-07] MEDS: HUMULIN R SUBQ SCH ×3 (06:21→16:01)
[2018-04-07 07:03] LABS: BASO# 0.01 X1000 (0.0-0.2); BASO% 0.2 % (0.0-0.8); EOS# 0.44 X1000 (0.0-0.7); EOS% 7.5 % (0.0-10.0); HEMATOCRIT 37.8 % (42.0-52.0); HEMOGLOBIN 12.2 g/dL (14.0-18.0); LYMPH# 1.15 X1000 (1.2-3.4); LYMPH% 19.6 % (20.5-51.1); MCH 31.8 PG (27-31); MCHC 32.3 g/dL (33-37); MCV 98.4 FL (81-99); MONO# 0.61 X1000 (0.11-0.59); MONO% 10.4 % (1.7-9.3); MPV 9.6 FL (7.4-10.4); NEUT# 3.67 X1000 (1.4-6.5); NEUT% 62.3 % (42.2-75.2); PLT 143 X1000 (130-400); RBC 3.84 XMIL (4.7-6.1); RDW 14.7 % (11.5-14.5); WBC 5.88 X1000 (4.8-10.8)
[2018-04-07 07:09] LABS: INR 1.55; PROTIME 19.8 Seconds (11.0-16.0)
[2018-04-07 07:25] LABS: CALCIUM 9.7 mg/dL (8.8-10.2); CREATININE 1.2 mg/dL (0.7-1.2); POTASSIUM 4.4 mmol/L (3.5-5.1)
[2018-04-07] MEDS: AQUAPHOR OINTMENT TOP SCH (08:41)
[2018-04-07] MEDS: LYRICA PO SCH ×2 (08:42→16:09)
[2018-04-07] MEDS: ROBAXIN PO SCH ×2 (08:42→16:09)
[2018-04-07] MEDS: KLOR-CON PO SCH (08:42)
[2018-04-07] MEDS: SYNTHROID PO SCH (08:42)
[2018-04-07] MEDS: ZYLOPRIM PO SCH (08:42)
[2018-04-07] MEDS: DOXYCYCLINE PO SCH (08:42)
[2018-04-07] MEDS: MIRALAX PO SCH (08:43)
[2018-04-07] MEDS: MYCOSTATIN POWDER TOP SCH (08:43)
[2018-04-07 14:15] VITALS: BP 146/66
--- NOTE | 2018-04-07 16:46 | DISCHARGE SUMMARY ---
ADMISSION DATE: 03/28/2018 DISCHARGE DATE: 04/07/2018 DIAGNOSES: 1. Perineal/scrotal abscess status post incision and drainage a couple weeks ago and removal of sutures just over a week ago per Dr. Neumann, his urologist. At that time, there was note made of 1/3 of the wound had dehisced slightly and that is granulating in well with wound care dressings and he is on oral doxycycline. 2. Chronic low back pain worsened in the last 3 weeks by inactivity. 3. Morbid obesity. 4. History of pulmonary thromboembolism remote on longstanding chronic Coumadin therapy moving back towards therapeutic range now as we had to decrease his dose due to the doxycycline. 5. Type 2 diabetes mellitus. 6. Gout. 7. Peripheral neuropathy. 8. Osteoarthritis. 9. Hypothyroidism. 10. Very mild chronic renal insufficiency which is actually doing well during the hospitalization. CONSULTANTS: Dr. Neumann, urology. PROCEDURES: On 04/02/2018 patient underwent removal of the sutures after secondary closure of perianal/perineal and left scrotal abscess had been drained a couple weeks prior to that. Hogan catheter has been removed and the patient is able to reduce his foreskin without difficulty now and scrotal edema has improved markedly. There was 1/3 dehiscence of the wound which is granulating in nicely. He remains on oral doxycycline. REASON FOR ADMISSION AND HOSPITAL COURSE: The patient is a 67-year-old white male followed in my medical practice. He suffers from morbid obesity. He came in with perineal/scrotal abscess about 3 weeks ago and had I and D performed per Dr. Neumann and ultimately underwent secondary wound closure with sutures and Dr. Neumann found on this admission that the patient had mild dehiscence of the wound and wound care worked with the patient during the hospitalization. He was maintained on oral doxycycline and was doing well in that regard. Scrotal edema had improved markedly and Hogan catheter was removed in the operating room on 04/02/2018. The patient has had exacerbation of chronic back pain and we adjusted on medications during the hospitalization and left him on Robaxin, which has done better than Baclofen while he was in the hospital and he was out on his INR due to the antibiotics and we reduced the dosage during hospitalization to come down from 6 mg at his home dosage down to around 3 to 4 and discharge INR is ranging 1.5 to 1.7. He remained on his home dose of Synthroid. He does have some intertriginous yeast and fungus and was treated with nystatin powder to the area and he remains on trazodone for sleep at night. He remains on allopurinol for prophylaxis of gout and for his chronic back pain. He was doing fairly well on Lyrica 150 mg b.i.d. along with the Robaxin. The patient remained on some low-dose sliding scale insulin during the hospitalization and did well in that regard. Creatinine was very good during the hospitalization. He also stooled well with MiraLAX. Discharge labs were notably good with white count of 5.8, hemoglobin 12.2, platelets 143,000. INR 1.55, day prior to that is 1.7, day prior that is 1.8. Creatinine was 1.2, potassium 4.4. Urinalysis was negative except for some blood which likely was associated with his catheter which was in place at that time. Physical therapy worked with the patient during hospitalization but this was slow. He will continue physical therapy out of the rehab. The main thing he will need is about every 3rd day PT/INR to adjust his Coumadin. This is very important and he will also have CBC and CMP in 3 days after he gets to rehab. He will follow up in my office for PT/INR when he gets out of rehab. cc: MD Aaron Eldridge MD
[2018-04-07] MEDS ORDERED: COUMADIN PO SCH (21:00)
[2018-04-08] MEDS ORDERED: LOVENOX SUBQ SCH (09:00)
== END 2018-04-07 19:15 | DRG 920 ==
LOC: SUPCPDRO → ED 13:09 → 3N 17:38
PROVIDERS: ADMIT Internal Medicine; ATTEND Family Medicine
CPT/HCPCS: 71010; 71045; 73502; 80048; 80053; 81001; 82550; 82805; 82948; 83605; 83735; 83880; 84484; 85025; 85610; 85730; 87040; 93005; 94761; 94799; 96374; 97110; 97162; 97530; 99285; A9270; C9113; J1940; J2250; J2270; J3010; J7030; S0164; XXXXX